=== PATIENT | female | born 1960 | race Caucasian/White ===

== ENCOUNTER → 2016-10-06 17:17 | Emergency (ER) | payer OTHER ==
[~2016-10-06 17:17] MED LIST: Iodixanol* (CONTRAST) 320 MG/ML 100 ML SDV IV ONE; NS 0.9% 1000 ML* 1,000 ML IV ONE
[2016-10-06 18:08] LABS: Hematocrit 37 % (35-47); Hemoglobin 12.2 g/dl (12.0-16.0); Mean Corpuscular HGB Conc 33 g/dl (31-36); Mean Corpuscular Hemoglobin 28 pg (27-31); Mean Corpuscular Volume 84 fL (80-97); Mean Platelet Volume 10 um3 (7.4-10.4); Red Blood Count 4.42 10^6/ul (4.0-5.4); Red Cell Distribution Width 13 % (10.5-15); White Blood Count 7.8 10^3/ul (3.5-10.8)
[2016-10-06 18:21] LABS: Chloride 104 mmol/L (101-111); Potassium 3.5 mmol/L (3.5-5.0); Sodium 132 mmol/L (133-145)
[2016-10-06 18:40] LABS: C Reactive Protein < 1.00 mg/L (< 5.00)
[2016-10-06 19:07] LABS: Albumin 4.3 g/dL (3.2-5.2)
[2016-10-06 19:08] LABS: ALT 44 U/L (7-52); AST 43 U/L (13-39); Alkaline Phosphatase 83 U/L (34-104); Anion Gap 5 mmol/L (2-11); BUN/Creatinine Ratio 19.6 (8-20); Blood Urea Nitrogen 21 mg/dL (6-24); CO2 Carbon Dioxide 23 mmol/L (22-32); Creatine Kinase 82 U/L (10-223); EGFR African American 68.7 (>60); EGFR Non-African American 53.4 (>60); Globulin 2.8 g/dL (2-4); Glucose 209 mg/dL (70-100); Lipase 56 U/L (11.0-82.0); Total Protein 7.1 g/dL (6.4-8.9)
[2016-10-06 19:39] LABS: TSH (Thyroid Stimulating Horm) 3.58 mcIU/mL (0.34-5.60)
[2016-10-06 20:15] VITALS: BP 133/82
--- NOTE | 2016-10-06 20:44 | RAD ---
HISTORY: Chest pain, abdominal pain COMPARISONS: Mammogram dated April 29, 2013 and August 01, 2016 TECHNIQUE: Multiple contiguous axial CT scans were obtained of the chest, abdomen, and pelvis after the administration of intravenous contrast. Coronal and sagittal multiplanar reformations are submitted for review.. 3-D volumetric reconstructions of the aorta are also submitted for review FINDINGS: CHEST NECK AND THYROID: The patient appears to be status post left thyroidectomy. CHEST WALL: There is no lower cervical, axillary, or supraclavicular lymphadenopathy by size criteria. There is a right breast nodule measuring 2 cm in size. This appears to correspond to a mammographic finding stable from multiple prior examinations consistent with benign nodule. HEART AND PERICARDIUM: The heart is unremarkable. AORTA AND PULMONARY VASCULATURE: The aorta and pulmonary vasculature are normal. There is no pulmonary arterial filling defects to suggest pulmonary embolism. There is no intimal flap or aneurysmal dilatation of the aorta. MEDIASTINUM: There is no mediastinal lymphadenopathy by size criteria. HILARIA: There is no hilar lymphadenopathy by size criteria. AIRWAY AND ESOPHAGUS: The airway is unremarkable, without endobronchial filling defect. The esophagus is grossly normal. LUNG PARENCHYMA: The lungs are clear. PLEURA: No pleural abnormalities are noted. BONES AND SOFT TISSUES: Mild degenerative changes are noted ABDOMEN/PELVIS: LIVER: The liver is diffusely low in attenuation compared to the spleen. There are no focal hepatic parenchymal masses. The liver is enlarged measuring 21 cm in long axis. BILE DUCTS: There is no intrahepatic or extrahepatic biliary dilatation. GALLBLADDER: The gallbladder is normal, without pericholecystic inflammatory change. PANCREAS: The pancreas is normal, without mass or ductal dilatation. SPLEEN: Normal in size and appearance. UPPER GI TRACT: Evaluation of the gastrointestinal tract is limited by incomplete gastric distention. The upper GI tract is unremarkable. SMALL BOWEL \T\ MESENTERY: The small bowel is normal in contour, course, and caliber. There is no obstruction or dilatation. COLON: There are multiple diverticula of the distal colon. There is no pericolonic inflammatory change. There is a tubular, vermiform, hollow viscus that is blind ending, and originates from the cecum, consistent with a normal appendix. There is no periappendiceal inflammatory change. This is best seen on axial image 190. ADRENALS: Normal bilaterally. KIDNEYS: The kidneys are normal in shape, size, contour, and axis. There is no hydronephrosis or nephrolithiasis. BLADDER: The bladder is smooth in contour. PELVIC ORGANS: The uterus is lobulated consistent with uterine fibroids. AORTA: The aorta is normal. IVC: Unremarkable LYMPH NODES: There is no lymphadenopathy by size criteria. ABDOMINAL WALL: There is no evidence for abdominal wall hernia. BONES: There are mild diffuse degenerative changes. OTHER: None IMPRESSION: 1. NO FINDINGS TO SUGGEST AORTIC DISSECTION OR ANEURYSM. 2. NO PULMONARY ARTERIAL FILLING DEFECT TO SUGGEST PULMONARY EMBOLISM. 3. HEPATOMEGALY WITH FATTY INFILTRATION OF THE LIVER. 4. FIBROID UTERUS. 5. DIVERTICULOSIS.
--- NOTE | 2016-10-06 20:57 | ED ---
Lois Oglesby Rebecca, scribed for Kendell Dewitt MD on 10/06/16 at 1742 . HPI Chest Pain - HPI Summary HPI Summary: Pt is a 56 y/o F who presents to ED c/o CP. Pain has been intermittent for multiple months, increasing in frequency. Pain is on the left anterior region "underneath the left breast" with radiation to the left shoulder blade region and is currently mild, ranked 3/10 and characterized as pressure. Pt reports the pain is predominantly in the back. Sx aggravated by deep breaths and leaning to the left, alleviated by nothing. Additionally c/o SOB that has been present for a while. Denies wheezing, blood in stool and acute edema. No bowel or bladder changes and has been able to eat and drink well. Recent Dx arthritis in the back, diagnosed by MRI. - History of Current Complaint Chief Complaint: EDChestPainROMI Time Seen by Provider: 10/06/16 17:33 Hx Obtained From: Patient Onset/Duration: Started Weeks Ago - Months, Still Present Timing: Intermittent Current Severity: Mild Pain Intensity: 3 Pain Scale Used: 0-10 Numeric Chest Pain Location: Left Anterior, Left Lateral Chest Pain Radiates: Yes Chest Pain Radiates To:: Back Character: Pressure/Squeezing Aggravating Factor(s): Movement - Bending to the left, Deep Breaths Alleviating Factor(s): Nothing Associated Signs and Symptoms: Positive: Shortness of Breath - present for a while. Negative: Edema - Allergy/Home Medications Allergies/Adverse Reactions: Allergies Allergy/AdvReac Type Severity Reaction Status Date / Time No Known Allergies Allergy Verified 09/28/16 14:22 PMH/Surg Hx/FS Hx/Imm Hx Endocrine/Hematology History: Denies: Hx Diabetes Comment Only: Hx Thyroid Disease - GOITER REMOVED Cardiovascular History: Reports: Hx Hypertension - ON MEDICATION FOR, Other Cardiovascular Problems/Disorders - HISTORY BLOOD CLOTS BY BOTH ANKLES- ABOUT 3 YEARS AGO Denies: Hx Pacemaker/ICD Respiratory History: Denies: Hx Asthma GI History: Reports: Hx Gastroesophageal Reflux Disease - ON MEDICATION FOR, Hx Hiatal Hernia - SMALL PER PATIENT- DIAGNOSED YEARS AGO, Hx Ulcer - HISTORY OF - NO PROBLEMS SINCE ON NEXIUM, Other GI Disorders - GOUT- ON MEDICATION FOR History: Reports: Other Problems/Disorders - "LEAK A SMALL AMOUNT OF PROTEIN FROM KIDNEY'S" Denies: Hx Renal Disease - LACKING PROTEIN Musculoskeletal History: Reports: Hx Arthritis - KNEES Sensory History: Reports: Hx Cataracts - BILATERAL, Hx Contacts or Glasses - READING GLASSES Denies: Hx Hearing Aid Opthamlomology History: Reports: Hx Cataracts - BILATERAL, Hx Contacts or Glasses - READING GLASSES Psychiatric History: Denies: Hx Panic Disorder - Cancer History Hx Chemotherapy: No Hx Radiation Therapy: No - Surgical History Surgery Procedure, Year, and Place: CATARACTS-BILATERAL- 6 YEARS AGO-[facility]. BILATERAL KNEE ARTHROSCOPIES-[facility], [place]. RIGHT SHOULDER-PA. GOITER REMOVED- [facility]. Rt FOOT - FOR HEEL SPUR, PLANTAR FASCITIES Hx Anesthesia Reactions: No Infectious Disease History: Denies: Traveled Outside the [place] in Last 30 Days - Family History Known Family History: Positive: Other - Brain clot - Social History Alcohol Use: Occasionally Substance Use Type: Reports: Marijuana Substance Use Comment - Amount & Last Used: MARIJUANA-MONDAY LAST USED Smoking Status (MU): Current Every Day Smoker Amount Used/How Often: 1/2 PPD X 25 YEARS Have You Smoked in the Last Year: Yes Review of Systems Positive: Chest Pain - left anterior with radiation to the L shoulder blade Positive: Shortness Of Breath - present for a while, Other - NEGATIVE: wheezing Positive: Other - NEGATIVE: blood in stool Negative: Edema All Other Systems Reviewed And Are Negative: Yes Physical Exam - Summary Physical Exam Summary: General: well-appearing, no pain distress Skin: warm, color reflects adequate perfusion, dry Head: normal Eyes: EOMI, ELAN ENT: normal Neck: supple, nontender Respiratory: CTA, breath sounds present Cardiovascular: RRR, no tenderness to palpation Abdomen: soft, nontender Bowel: present Musculoskeletal: normal, strength/ROM intact Neurological: normal, sensory/motor intact, A&O x3 Psychological: affect/mood appropriate Triage Information Reviewed: Yes Vital Signs On Initial Exam: Initial Vitals Temp Pulse Resp BP Pulse Ox 98.1 F 79 20 139/84 99 10/06/16 17:25 10/06/16 17:25 10/06/16 17:25 10/06/16 17:25 10/06/16 17:25 Vital Signs Reviewed: Yes Diagnostics - Vital Signs Vital Signs Temp Pulse Resp BP Pulse Ox 10/06/16 17:25 98.1 F 79 20 139/84 99 - Laboratory Lab Results: Lab Results 10/06/16 10/06/16 10/06/16 Range/Units 17:47 17:47 17:47 WBC 7.8 (3.5-10.8) 10^3/ul RBC 4.42 (4.0-5.4) 10^6/ul Hgb 12.2 (12.0-16.0) g/dl Hct 37 (35-47) % MCV 84 (80-97) fL MCH 28 (27-31) pg MCHC 33 (31-36) g/dl RDW 13 (10.5-15) % Plt Count 198 (150-450) 10^3/ul MPV 10 (7.4-10.4) um3 Neut % (Auto) 53.0 (38-83) % Lymph % (Auto) 37.2 (25-47) % Union % (Auto) 6.6 (1-9) % Eos % (Auto) 2.4 (0-6) % Baso % (Auto) 0.8 (0-2) % Absolute Neuts (auto) 4.1 (1.5-7.7) 10^3/ul Absolute Lymphs (auto) 2.9 (1.0-4.8) 10^3/ul Absolute Monos (auto) 0.5 (0-0.8) 10^3/ul Absolute Eos (auto) 0.2 (0-0.6) 10^3/ul Absolute Basos (auto) 0.1 (0-0.2) 10^3/ul Absolute Nucleated RBC 0 10^3/ul Nucleated RBC % 0 INR (Anticoag Therapy) 0.83 L (0.89-1.11) APTT 24.9 L (26.0-36.3) seconds D-Dimer, Quantitative < 200 (Less Than 230) ng/mL Sodium 132 L (133-145) mmol/L Potassium 3.5 (3.5-5.0) mmol/L Chloride 104 (101-111) mmol/L Carbon Dioxide 23 (22-32) mmol/L Anion Gap 5 (2-11) mmol/L BUN 21 (6-24) mg/dL Creatinine 1.07 H (0.51-0.95) mg/dL Est GFR ( Amer) 68.7 (>60) Est GFR (Non-Af Amer) 53.4 (>60) BUN/Creatinine Ratio 19.6 (8-20) Glucose 209 H (70-100) mg/dL Lactic Acid (0.5-2.0) mmol/L Calcium 9.0 (8.6-10.3) mg/dL Total Bilirubin 0.30 (0.2-1.0) mg/dL AST 43 H (13-39) U/L ALT 44 (7-52) U/L Alkaline Phosphatase 83 (34-104) U/L Total Creatine Kinase 82 (10-223) U/L CK-MB (CK-2) 2.3 (0.6-6.3) ng/mL Troponin I 0.00 (<0.04) ng/mL C-Reactive Protein < 1.00 (< 5.00) mg/L B-Natriuretic Peptide ( - 100) pg/mL Total Protein 7.1 (6.4-8.9) g/dL Albumin 4.3 (3.2-5.2) g/dL Globulin 2.8 (2-4) g/dL Albumin/Globulin Ratio 1.5 (1-3) Lipase 56 (11.0-82.0) U/L TSH 3.58 (0.34-5.60) mcIU/mL 10/06/16 10/06/16 Range/Units 17:47 17:47 WBC (3.5-10.8) 10^3/ul RBC (4.0-5.4) 10^6/ul Hgb (12.0-16.0) g/dl Hct (35-47) % MCV (80-97) fL MCH (27-31) pg MCHC (31-36) g/dl RDW (10.5-15) % Plt Count (150-450) 10^3/ul MPV (7.4-10.4) um3 Neut % (Auto) (38-83) % Lymph % (Auto) (25-47) % Union % (Auto) (1-9) % Eos % (Auto) (0-6) % Baso % (Auto) (0-2) % Absolute Neuts (auto) (1.5-7.7) 10^3/ul Absolute Lymphs (auto) (1.0-4.8) 10^3/ul Absolute Monos (auto) (0-0.8) 10^3/ul Absolute Eos (auto) (0-0.6) 10^3/ul Absolute Basos (auto) (0-0.2) 10^3/ul Absolute Nucleated RBC 10^3/ul Nucleated RBC % INR (Anticoag Therapy) (0.89-1.11) APTT (26.0-36.3) seconds D-Dimer, Quantitative (Less Than 230) ng/mL Sodium (133-145) mmol/L Potassium (3.5-5.0) mmol/L Chloride (101-111) mmol/L Carbon Dioxide (22-32) mmol/L Anion Gap (2-11) mmol/L BUN (6-24) mg/dL Creatinine (0.51-0.95) mg/dL Est GFR ( Amer) (>60) Est GFR (Non-Af Amer) (>60) BUN/Creatinine Ratio (8-20) Glucose (70-100) mg/dL Lactic Acid 1.8 (0.5-2.0) mmol/L Calcium (8.6-10.3) mg/dL Total Bilirubin (0.2-1.0) mg/dL AST (13-39) U/L ALT (7-52) U/L Alkaline Phosphatase (34-104) U/L Total Creatine Kinase (10-223) U/L CK-MB (CK-2) (0.6-6.3) ng/mL Troponin I (<0.04) ng/mL C-Reactive Protein (< 5.00) mg/L B-Natriuretic Peptide 38 ( - 100) pg/mL Total Protein (6.4-8.9) g/dL Albumin (3.2-5.2) g/dL Globulin (2-4) g/dL Albumin/Globulin Ratio (1-3) Lipase (11.0-82.0) U/L TSH (0.34-5.60) mcIU/mL Result Diagrams: 10/06/16 17:47 10/06/16 17:47 Lab Statement: Any lab studies that have been ordered have been reviewed, and results considered in the medical decision making process. - CT CTA Chest/Abd/Pel CT Interpretation: Positive (See Comments) - 1. NO FINDINGS TO SUGGEST AORTIC DISSECTION OR ANEURYSM. 2. NO PULMONARY ARTERIAL FILLING DEFECT TO SUGGEST PULMONARY EMBOLISM. 3. HEPATOMEGALY WITH FATTY INFILTRATION OF THE LIVER. 4. FIBROID UTERUS. 5. DIVERTICULOSIS. ED physician reviewed this radiology report and agrees. CT Interpretation Completed By: Radiologist - EKG 1847 Cardiac Rate: NL - bpm EKG Rhythm: Sinus Rhythm ST Segment: Normal Ectopy: None Re-Evaluation - Re-Evaluation First Eval Re-Evaluation Time: 19:47 Change: Improved Comment: Pt is doing well, discussed lab results with the pt. Second Eval Re-Evaluation Time: 20:52 Comment: Discussed radiology report and D/C plan with the pt. Chest Pain Course/Dx - Course Assessment/Plan: Pt is a 56 y/o F who presents to ED c/o CP. Pain has been intermittent for multiple months, increasing in frequency. Pain is on the left anterior region "underneath the left breast" with radiation to the left shoulder blade region and is currently mild, ranked 3/10 and characterized as pressure. Pt reports the pain is predominantly in the back. Sx aggravated by deep breaths and leaning to the left, alleviated by nothing. Additionally c/o SOB that has been present for a while. Denies wheezing, blood in stool and acute edema. No bowel or bladder changes and has been able to eat and drink well. Recent Dx arthritis in the back, diagnosed by MRI. CTA Chest/Abd/Pel reveals "1. NO FINDINGS TO SUGGEST AORTIC DISSECTION OR ANEURYSM. 2. NO PULMONARY ARTERIAL FILLING DEFECT TO SUGGEST PULMONARY EMBOLISM. 3. HEPATOMEGALY WITH FATTY INFILTRATION OF THE LIVER. 4. FIBROID UTERUS. 5. DIVERTICULOSIS. " EKG reveals sinus rhythm with no ST elevations. D-Dimer <200, Troponin of 0.00. In the ED course, pt was administered fluids. Elevated BP noted and advised to f/u with PCP. DISCUSSED RESULTS WITH PATIENT. SHE WILL F/ U WITH HER PMD. - Diagnoses Provider Diagnoses: Chest pain, Abdominal pain Discharge - Discharge Plan Condition: Stable Disposition: HOME Patient Education Materials: Chest Pain (ED), Abdominal Pain (ED), Hyperglycemia, Non-Diabetic (ED) Referrals: Long Machado MD [Primary Care Provider] - Additional Instructions: FOLLOW UP WITH YOUR DOCTOR. RETURN TO THE EMERGENCY DEPARTMENT FOR ANY WORSENING OF YOUR CONDITION OR QUESTIONS OR CONCERNS. The documentation as recorded by the scribe, DiFabio,Yelena accurately reflects the service I personally performed and the decisions made by me, Kendell Dewitt MD.
== END | disposition home or self-care (01) ==
LOC: ED 17:17
DX: R07.89 Other chest pain (principal); R10.9 Unspecified abdominal pain; R06.02 Shortness of breath; I10 Essential (primary) hypertension; K21.9 Gastro-esophageal reflux disease without esophagitis; Z98.42 Cataract extraction status, left eye; Z98.41 Cataract extraction status, right eye; D25.9 Leiomyoma of uterus, unspecified; K57.30 Diverticulosis of large intestine without perforation or abscess without bleeding
CPT/HCPCS: 36415; 71275; 74174; 80053; 82550; 82553; 83605; 83690; 83880; 84443; 84484; 85025; 85379; 85610; 85730; 86140; 93005; 96360; 96361; 99284; Q9967

== ENCOUNTER 2017-01-24 23:46 | Observation (INO) | payer OTHER ==
[2017-01-25] MEDS ORDERED: Morphine INJ* 4 MG/ML 1 ML CARPUJECT IV ONE ×2 (00:34→04:21)
[2017-01-25] MEDS ORDERED: Ketorolac INJ* 30 MG/ML 1 ML VIAL IV PUSH ONE (00:34)
[2017-01-25] MEDS ORDERED: Ondansetron INJ* 2 MG/ML VIAL IV ONE (00:34)
[2017-01-25 00:51] LABS: Hematocrit 34 % (35-47); Hemoglobin 11.3 g/dl (12.0-16.0); Mean Corpuscular HGB Conc 33 g/dl (31-36); Mean Corpuscular Hemoglobin 28 pg (27-31); Mean Corpuscular Volume 85 fL (80-97); Mean Platelet Volume 10 um3 (7.4-10.4); Red Blood Count 4.03 10^6/ul (4.0-5.4); Red Cell Distribution Width 14 % (10.5-15); White Blood Count 6.9 10^3/ul (3.5-10.8)
[2017-01-25 01:07] LABS: Albumin 3.8 g/dL (3.2-5.2); BUN/Creatinine Ratio 12.5 (8-20); Calcium 8.8 mg/dL (8.6-10.3); EGFR African American 60.2 (>60); EGFR Non-African American 46.8 (>60); Globulin 3.2 g/dL (2-4); Total Bilirubin 0.3 mg/dL (0.2-1.0)
[2017-01-25 01:08] LABS: Troponin I 0.01 ng/mL (<0.04)
[2017-01-25 01:42] LABS: Potassium 3.8 mmol/L (3.5-5.0)
[2017-01-25] MEDS ORDERED: Iodixanol* (CONTRAST) 320 MG/ML 100 ML SDV IV ONE (02:28)
[2017-01-25] MEDS ORDERED: Enoxaparin(*) 150 MG/ML 1 ML SYRINGE SUBCUT STA (04:22)
--- NOTE | 2017-01-25 04:29 | ED ---
Lois Oglesby Rebecca, scribed for Francois Garner MD on 01/25/17 at 0007 . Back Pain - HPI Summary HPI Summary: Pt is a 56 y/o F who presents to ED c/o L flank pain. Sx began tonight at approximately 2200. Pain was ranked 9/10 on triage and is currently moderate, ranked 7/10 and radiates under the left breast and through the back. Sx aggravated by movement and breathing, alleviated by nothing. Additionally c/o cough and nausea. Denies fever, diaphoresis and vomiting. Last stress test was a few months ago which she passed. PSHx L knee replacement 12/14/2016. SHx former smoker. - History of Current Complaint Chief Complaint: EDFlankPain Stated Complaint: BACK PAIN Time Seen by Provider: 01/25/17 00:00 Hx Obtained From: Patient Onset/Duration: Lasting Hours, Still Present Back Pain Location: Is Discrete @ - L flank, Radiates To - Throughout the back and under the L breast Severity Initially: Severe Severity Currently: Moderate Pain Intensity: 7 Pain Scale Used: 0-10 Numeric Aggravating Symptom(s): Movement, Other - Breathing Alleviating Symptom(s): Nothing Associated Signs And Symptoms: Positive: Other - Nausea, cough - Allergies/Home Medications Allergies/Adverse Reactions: Allergies Allergy/AdvReac Type Severity Reaction Status Date / Time No Known Allergies Allergy Verified 01/24/17 23:58 PMH/Surg Hx/FS Hx/Imm Hx Endocrine/Hematology History: Denies: Hx Diabetes Comment Only: Hx Thyroid Disease - GOITER REMOVED Cardiovascular History: Reports: Hx Angina - pressure radiates to arm, Hx Deep Vein Thrombosis, Hx Hypertension, Other Cardiovascular Problems/Disorders - HISTORY BLOOD CLOTS BY BOTH ANKLES- ABOUT 3 YEARS AGO Denies: Hx Coronary Artery Disease, Hx Hypercholesterolemia, Hx Myocardial Infarction, Hx Pacemaker/ICD, Hx Valvular Heart Disease Respiratory History: Reports: Hx Sleep Apnea Denies: Hx Asthma, Hx Chronic Obstructive Pulmonary Disease (COPD) GI History: Reports: Hx Gastroesophageal Reflux Disease - ON MEDICATION FOR, Hx Hiatal Hernia - SMALL PER PATIENT- DIAGNOSED YEARS AGO, Hx Ulcer - HISTORY OF - NO PROBLEMS SINCE ON NEXIUM, Other GI Disorders - GOUT- ON MEDICATION FOR History: Reports: Other Problems/Disorders - "LEAK A SMALL AMOUNT OF PROTEIN FROM KIDNEY'S" Denies: Hx Renal Disease - LACKING PROTEIN Musculoskeletal History: Reports: Hx Arthritis - KNEES Sensory History: Reports: Hx Cataracts - BILATERAL, Hx Contacts or Glasses - READING GLASSES Denies: Hx Hearing Aid Opthamlomology History: Reports: Hx Cataracts - BILATERAL, Hx Contacts or Glasses - READING GLASSES Psychiatric History: Reports: Hx Anxiety Denies: Hx Panic Disorder - Cancer History Hx Chemotherapy: No Hx Radiation Therapy: No - Surgical History Surgery Procedure, Year, and Place: CATARACTS-BILATERAL- 6 YEARS AGO-[facility]. BILATERAL KNEE ARTHROSCOPIES-[facility], [place]. RIGHT SHOULDER-PA. GOITER REMOVED- [facility]. Rt FOOT - FOR HEEL SPUR, PLANTAR FASCITIES Hx Anesthesia Reactions: No Infectious Disease History: No Infectious Disease History: Denies: Traveled Outside the [place] in Last 30 Days - Family History Known Family History: Positive: Other - Brain clot - Social History Alcohol Use: Occasionally Alcohol Amount: 12 BEERS ON WEEKEND Substance Use Type: Reports: Marijuana Substance Use Comment - Amount & Last Used: MARIJUANA-MONDAY LAST USED Smoking Status (MU): Current Some Day Smoker Amount Used/How Often: 1/2 PPD X 25 YEARS Have You Smoked in the Last Year: Yes Review of Systems Negative: Fever, Skin Diaphoresis Positive: Cough Positive: Nausea. Negative: Vomiting Positive: flank pain - Left All Other Systems Reviewed And Are Negative: Yes Physical Exam - Summary Physical Exam Summary: VITAL SIGNS: Reviewed. GENERAL: ~Patient is a well-developed and nourished female who is lying in the stretcher. Patient is not in any acute respiratory distress. HEAD AND FACE: No signs of trauma. No ecchymosis, hematomas or skull depressions. No sinus tenderness. EYES: PERRLA, EOMI x 2, No injected conjunctiva, no nystagmus. EARS: Hearing grossly intact. Ear canals and tympanic membranes are within normal limits. MOUTH: Oropharynx within normal limits. NECK: Supple, trachea is midline, no adenopathy, no JVD, no carotid bruit, no c- spine tenderness, neck with full ROM. CHEST: Symmetric, no tenderness at palpation LUNGS: Clear to auscultation bilaterally. No wheezing or crackles. Decreased breath sounds due to the pain. CVS: Regular rate and rhythm, S1 and S2 present, no murmurs or gallops appreciated. ABDOMEN: Soft, non-tender. No signs of distention. No rebound no guarding, and no masses palpated. Bowel sounds are normal. EXTREMITIES: FROM in all major joints, no edema, no cyanosis or clubbing. NEURO: Alert and oriented x 3. No acute neurological deficits. Speech is normal and follows commands. SKIN: Dry and warm Triage Information Reviewed: Yes Vital Signs On Initial Exam: Initial Vitals Temp Pulse Resp BP Pulse Ox 98.5 F 99 20 145/93 99 01/24/17 23:54 01/24/17 23:54 01/24/17 23:54 01/24/17 23:54 01/24/17 23:54 Vital Signs Reviewed: Yes Diagnostics - Vital Signs Vital Signs Temp Pulse Resp BP Pulse Ox 01/24/17 23:54 98.5 F 99 20 145/93 99 - Laboratory Result Diagrams: 01/25/17 00:25 01/25/17 00:25 Lab Statement: Any lab studies that have been ordered have been reviewed, and results considered in the medical decision making process. - Radiology CXR Xray Interpretation: No Acute Changes Radiology Interpretation Completed By: ED Physician - CT CTA Chest CT Interpretation: Positive (See Comments) - Pulmonary emboli bilateral lower lobes and left upper lobe. Peripheral densities left lower lobe, suspicious for infarcts. No aortic dissection or aneurysm. No pneumonia or pleural effusions. Mediastinal lymphadenopathy, indeterminate. Left hemithyroidectomy. Dr. Garner reviewed this radiology report. CT Interpretation Completed By: Radiologist - EKG 2355 Cardiac Rate: NL EKG Rhythm: Sinus Rhythm EKG Interpretation: 88 bpm. Normal interval. Normal axis. No ischemic changes. Re-Evaluation - Re-Evaluation First Eval Re-Evaluation Time: 04:20 Comment: Discussed results with the pt. Back Pain Course/Dx - Course Assessment/Plan: Pt is a 56 y/o F who presents to ED c/o L flank pain since 2199 , currently ranked 7/10 and radiates under the left breast and through the back. Sx aggravated by movement and breathing. Additionally c/o cough and nausea. Denies fever, diaphoresis and vomiting. Last stress test was a few months ago which she passed. PSHx L knee replacement 12/14/2016. SHx former smoker. CXR and EKG reveal no acute findings. CTA Chest reveals bilateral lower lobe and left upper lobe pulmonary emboli. Discussed care of pt with Dr. Morales who accepts the pt for admission. Pt understands and agrees. Elevated BP noted. - Diagnoses Provider Diagnoses: Bilateral pulmonary embolism, Pulmonary infarction - Provider Notifications Discussed Care Of Patient With: Karen Morales Time Discussed With Above Provider: 04:26 Instructed by Provider To: Other - Accepts pt for admission Discharge - Discharge Plan Condition: Stable Disposition: ADMITTED TO [facility] Referrals: Long Machado MD [Primary Care Provider] - The documentation as recorded by the Lois arciniega Rebecca accurately reflects the service I personally performed and the decisions made by , Francois Garner MD.
[2017-01-25] MEDS ORDERED: Acetaminophen TAB* 325 MG PO PRN (04:51)
[2017-01-25] MEDS ORDERED: NS 0.9% 1000 ML* 1,000 ML IV SCH (05:00)
[2017-01-25] MEDS ORDERED: Morphine INJ* 2 MG/ML 1 ML SYRINGE (TWO MG - NEW SYRINGE VERSION) IV PRN (05:15)
--- NOTE | 2017-01-25 07:13 | HP ---
CC: Dr. Machado; Dr. Klein * HISTORY AND PHYSICAL: DATE OF ADMISSION: 01/25/17 PRIMARY CARE PROVIDER: Dr. Machado. ORTHOPEDIC SURGEON: Dr. Klein. CHIEF COMPLAINT: Chest pain. HISTORY OF PRESENT ILLNESS: Ms. Pires is a 56-year-old female who underwent elective left total knee arthroplasty on 12/14/[address] Klein. She states that she did well following the surgery. She was on Eliquis for approximately 1 month and stopped the Eliquis she believes last week. The patient states that she has been doing physical therapy and has been getting along well. She has not gone back to work yet. The patient states that it is approximately 11 p.m. on the evening prior to admission, she had a sudden onset of severe left-sided chest pain. The patient describes the pain as being under her left breast and wrapping around to her back. Additionally, she felt very short of breath. She had had no chest pain prior though her partner does state that perhaps she has had some mild discomfort in her back over the last couple of days. The patient also admits to bringing up clear sputum over the last couple of days. The patient does admit to having what she thinks was a superficial vein thrombosis prior to a knee arthroscopic surgery in the past and was on Coumadin for this. PAST MEDICAL HISTORY: 1. Hypertension. 2. Gout. 3. GERD. 4. Obstructive sleep apnea utilizing CPAP. 5. Fatty liver disease. PAST SURGICAL HISTORY: 1. Goiter removal. 2. Rotator cuff repair. 3. Bilateral cataract extraction. 4. Plantar fasciitis release. 5. Bilateral arthroscopic knee surgery. 6. Left knee total arthroplasty. MEDICATIONS: 1. Nisoldipine 17 mg p.o. daily. 2. Losartan 100 mg p.o. daily. 3. Triamterene/hydrochlorothiazide 37.5/25 two tabs p.o. daily. 4. Nexium 40 mg p.o. daily. 5. Allopurinol 200 mg p.o. daily. ALLERGIES: No known drug allergies. FAMILY HISTORY: Mom is living. She is 74. She has a history of breast cancer , diabetes, and hyperlipidemia. Dad at the age of 57 of a brain aneurysm. SOCIAL HISTORY: The patient does not smoke cigarettes, but she does state she drinks alcohol on occasion. 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 She is . She has no children. Cayden Valdivia, the patient's partner, is her healthcare proxy. The patient was a prior tobacco smoker. Smoking one and a half pack per day for approximately 35 years. She also smokes marijuana each weekend. REVIEW OF SYSTEMS: A complete 11-system review of systems is obtained. Pertinent positives and negatives are as per HPI and otherwise negative except the patient does complain of mild dysuria. PHYSICAL EXAMINATION GENERAL: The patient is a well-developed, obese middle-aged female, sitting up in the bed in no acute distress. VITAL SIGNS: Blood pressure 121/90, pulse 75, respirations 23, temp 98.8, O2 sat 98% on 2 L. HEENT: Pupils are equal and round. There is evidence of prior cataract extraction. Extraocular muscles are intact. Oropharynx is clear. Oral mucosa is moist. There is no submandibular, cervical, or supraclavicular adenopathy. Thyroid is not enlarged. No thyroid nodules are noted. PULMONARY: Right lung is clear to auscultation. Left reveals basilar crackles. CARDIAC: Normal S1, S2. Regular rate and rhythm. I do not appreciate any murmurs. ABDOMEN: Bowel sounds present. Abdomen is soft, obese, nontender, and nondistended. EXTREMITIES: The left lower extremity appears to be larger in diameter than the right, but there is no significant pitting edema. MUSCULOSKELETAL: There is no cyanosis or clubbing of the digits. There is full active range of motion of all 4 extremities. SKIN: Warm and dry. There are no rashes. NEUROLOGIC: Cranial nerves II through XII are grossly intact. Sensation is intact to light touch throughout. Strength is 5/5 and symmetric both upper and lower extremities bilaterally. PSYCH: The patient is alert. She is oriented x3. Affect appears appropriate. DIAGNOSTIC STUDIES/LAB DATA: WBC 6.9, hemoglobin 11.3, hematocrit 34, platelets 202. INR 0.86. D-dimer greater than 1050. Sodium 138, potassium 3.8 , chloride 106, CO2 22, BUN 15, creatinine 1.20, glucose 171. Calcium 8.8, bilirubin 0.3, AST 41, ALT 47, alk phos 72. CPK 60. Troponin 0.01. Albumin 3.8. Chest x-ray to my interpretation, I question a small left basilar infiltrate. EKG reveals normal sinus rhythm without any acute ST-T wave abnormalities. CTA chest reveals bilateral pulmonary emboli right lower lobe, left lower lobe, and left upper lobe. There are possibly infarcts in the left lower lobe. ASSESSMENT AND PLAN: Ms. Pires is a 56-year-old female who underwent elective left total knee arthroplasty at the beginning of December, who now presents to the emergency room with complaints of sudden onset of severe chest pain and is found to have bilateral pulmonary emboli. 1. Bilateral pulmonary emboli: The patient will be admitted under observation status to be monitored on telemetry. At this point, she is hemodynamically stable. The patient has been off Eliquis for at least the last 1 week. I suspect the clot formed after discontinuing the Eliquis; however, it may be beneficial to speak with Hematology about recommendations for anticoagulation moving forward. The patient did not have any issues while she was on Eliquis. Transthoracic echocardiogram will be obtained. For now, she will be maintained on Lovenox 120 mg subcutaneous twice daily. The patient has been instructed to report coughing up any renee blood, any worsened or new chest pain or severe shortness of breath. I will also obtain left lower extremity Doppler to evaluate the extent of remaining clots. 2. Hypertension: The patient's blood pressure is under good control. I am going to hold her triamterene and hydrochlorothiazide for now, and continue the nisoldipine and losartan. If she becomes markedly hypertensive, the transferring hydrochlorothiazide can be added back cautiously. 3. Gastroesophageal reflux disease: Continue Nexium. 4. Gout: Continue allopurinol. 5. DVT prophylaxis: According to the Adult Thrombosis Prophylaxis Risk Factor Assessment Guide, the patient has a total risk factor score of 5 is identified. The patient will be on full dose Lovenox as DVT, PE treatment. 6. Code status is full. TIME SPENT: A 65 minutes was spent admitting the patient. [id number]/[facility] #: [id number] JENNIFER
--- NOTE | 2017-01-25 07:33 | RAD ---
INDICATION: Short of breath COMPARISON: Chest x-ray December 02, 2016 TECHNIQUE: An AP portable view obtained at 0044 hours is submitted. FINDINGS: Bones/Soft Tissues: There are no acute bony findings. Cardiomediastinal: The cardiomediastinal silhouette is normal. Lungs: There is a small left basilar infiltrate. The remaining lung pendleton are clear. Pleura: There are no pleural effusions. Other: None IMPRESSION: LEFT BASILAR INFILTRATE.
--- NOTE | 2017-01-25 07:39 | RAD ---
INDICATION: Left basilar infiltrate. Evaluate for pulmonary embolus. COMPARISON: Chest x-ray same date; CTA chest October 06, 2016 TECHNIQUE: Axial source images were obtained from the thoracic inlet to the hemidiaphragms following administration of [address] angiographic technique was utilized. Coronal and sagittal reconstructed images were acquired. CHEST FINDINGS: Neck/thyroid: There is left thyroidectomy. The right lobe is prominent. Chest wall: There are no acute abnormalities of the bony thorax or chest wall. There is a right breast nodule which represents a known finding from prior mammography There is no supraclavicular, infraclavicular, or axillary lymphadenopathy. Lungs : There is left basilar airspace disease which in the setting of acute pulmonary emboli could represent an infarct.. The pulmonary interstitium appears normal. There are no endobronchial lesions. Cardiomediastinal structures: There are fourth order and distal acute pulmonary emboli involving the lower lobes bilaterally. The heart is normal in size. There is no pericardial effusion. There is no evidence of aortic aneurysm or dissection. There is no mediastinal or hilar adenopathy on the basis of size criteria. There are mildly prominent mediastinal lymph nodes, unchanged. The esophagus appears normal. Pleura : There are no pleural-based masses or effusions. Other: None. IMPRESSION: BILATERAL LOWER LOBE ACUTE PULMONARY EMBOLI.
[2017-01-25] MEDS ORDERED: Allopurinol TAB* 100 MG PO SCH (09:00)
[2017-01-25] MEDS ORDERED: Losartan TAB* 25 MG PO SCH (09:00)
[2017-01-25] MEDS ORDERED: NISOLDIPINE 17 MG PO SCH (09:00)
[2017-01-25] MEDS ORDERED: Omeprazole CAP* 20 MG PO SCH (09:00)
--- NOTE | 2017-01-25 09:05 | RAD ---
INDICATION: Pain and swelling. Recent total knee replacement. COMPARISON: None TECHNIQUE: Duplex interrogation of the Lowerextremity was performed. FINDINGS: Deep veins: The common femoral, great saphenous, profunda femoris, proximal, mid, and distal deep femoral, popliteal, posterior tibial, and peroneal veins are interrogated. There is thrombus in the distal popliteal vein and in the peroneal veins. There is normal compressibility, augmentation, and phasic flow in the remaining venous structures.. Superficial veins: There are no findings of superficial thrombophlebitis. Popliteal fossa: 2.2 x 1.3 x 1.0 cm popliteal cyst. Soft tissues:There are no soft tissue abnormalities. IMPRESSION: Acute deep venous thrombosis. Popliteal cyst. Findings called to the floor following the examination.
[2017-01-25 10:13] VITALS: BP 112/60
[2017-01-25] MEDS ORDERED: Apixaban* 5 MG TAB PO SCH ×2 (10:17→10:39)
[2017-01-25] MEDS ORDERED: oxyCODONE TAB* 5 MG TAB PO PRN (10:41)
--- NOTE | 2017-01-25 10:50 | PN ---
"Progress Note - Progress Note Date of Service: 01/25/17 Note: Search Terms: jong pires, 1960 Search Date: 01/25/2017 10:40:27 AM The Drug Utilization Report below displays all of the controlled substance prescriptions, if any, that your patient has filled in the last twelve months. The information displayed on this report is compiled from pharmacy submissions to the Department, and accurately reflects the information as submitted by the pharmacies. This report was requested by: Zaire Hernandez | Reference #: [id number] Others' Prescriptions Patient Name: Jong Pires Date: 1960 Address: [address] [place] [address] Sex: Female Rx Written Rx Dispensed Drug Quantity Days Supply Prescriber Name 12/26/2016 12/27/2016 oxycodone hcl 5 mg tablet 60 15 Vaishnavi Eckert 12/26/2016 12/27/2016 diazepam 5 mg tablet 30 10 Vaishnavi Eckert 12/17/2016 12/17/2016 oxycodone hcl 5 mg tablet 120 10 Racquel Young 12/17/2016 12/17/2016 diazepam 5 mg tablet 30 10 Racquel Young 03/31/2016 03/31/2016 guaifenesin ac cough syrup 120ml 2 Renetta Alcala NP 03/17/2016 03/17/2016 guaifenesin ac cough syrup 120ml 4 Renetta Alcala NP"
[2017-01-25] MEDS ORDERED: Enoxaparin(*) 150 MG/ML 1 ML SYRINGE SUBCUT SCH (16:30)
--- NOTE | 2017-01-25 21:22 | DS ---
CC: Dr. Machado; Dr. Klein * DISCHARGE SUMMARY: DATE OF ADMISSION: 01/25/17 DATE OF DISCHARGE: 01/25/17 HISTORY OF PRESENT ILLNESS: This 56-year-old woman presented with chest pain. She had left total knee replacement on 12/14/16. She was placed on apixaban 2.5 mg b.i.d. for DVT prophylaxis. She finished it a week or possibly longer. Before the time of admission, she went to physical therapy. On the day of admission, she developed severe-left sided chest pain around 11 p.m. and was short of breath. The rest of the history is detailed and dictated in admission note. CTA showed bilateral pulmonary emboli. Ultrasound of the left leg showed some clots in the distal popliteal vein. She had no clinical symptoms from her leg thrombosis. The patient was given one injection of enoxaparin 120 mg in the emergency room. About 10:30 a.m., she was given apixaban 10 mg p.o. She will continue on apixaban 10 mg b.i.d. for 7 days, then changed to 5 mg b.i.d. She was given 40 oxycodone 5 mg tablets to take 1 or 2 every 4 hours p.r.n., maximum daily dosage. She was advised to take a laxative on a daily basis twice daily as needed to prevent constipation. FINAL DIAGNOSES: 1. Pulmonary emboli and left leg DVT. 2. Morbid obesity. 3. Osteoarthritis. 4. Gastroesophageal reflux disease. 5. Hypertension. DISCHARGE MEDICATIONS: 1. Apixaban 5 mg 2 b.i.d. for 7 days, then 1 b.i.d. 2. Oxycodone 5 mg 1 to 2 every 4 hours p.r.n. 3. Nisoldipine 17 mg every morning. 4. Losartan 100 mg daily. 5. Allopurinol 200 mg daily. 6. Esomeprazole 40 mg every morning. 7. Triamterene/hydrochlorothiazide 37.5/25 daily. [id number]/[facility] #: [id number] [facility]
== END 2017-01-25 12:35 | disposition home or self-care (01) ==
LOC: ED 23:46 → MEDTELE 01-25 04:51
PROVIDERS: ADMIT Hospitalist; ATTEND Internal Medicine
DX: I82.402 Acute embolism and thrombosis of unspecified deep veins of left lower extremity (principal); I26.99 Other pulmonary embolism without acute cor pulmonale; E66.9 Obesity, unspecified; M19.90 Unspecified osteoarthritis, unspecified site; K21.9 Gastro-esophageal reflux disease without esophagitis; I10 Essential (primary) hypertension; G47.33 Obstructive sleep apnea (adult) (pediatric); M10.9 Gout, unspecified; F12.90 Cannabis use, unspecified, uncomplicated; F17.200 Nicotine dependence, unspecified, uncomplicated
CPT/HCPCS: 36415; 71010; 71275; 80053; 82550; 84484; 85025; 85379; 85610; 85730; 93005; 96374; 96375; 99285; A9270-GY; G0378; J1650; J1885; J2270; J2405; Q9967

== ENCOUNTER 2018-01-20 17:47 | Emergency (ER) | payer OTHER ==
[2018-01-20] MEDS ORDERED: HYDROmorphone INJ* 1 MG/ML CARPUJECT SYRINGE IM ONE (20:02)
[2018-01-20] MEDS ORDERED: PROCHLORPERAZINE INJ 5 MG/ML 2 ML VIAL IM ONE (20:02)
[2018-01-20] MEDS ORDERED: Clindamycin CAP* 150 MG PO ONE (20:03)
--- NOTE | 2018-01-20 20:03 | ED ---
GI/ HPI - HPI Summary HPI Summary: This patient is a 57 year old F presenting to ED with a chief complaint of small rectal bleeding with her stool since 1 week ago. The CC is described as worsened today, and something is protruding from her rectum per the nurses note. The patient rates the pain 9/10 in severity. Symptoms aggravated by sitting. Symptoms alleviated by nothing. Patient reports nausea and slight pain in left LE. Patient denies fever. Prior treatment includes hemorrhoid cream. PMHx of colonscopy in November 2017. - History of Current Complaint Chief Complaint: EDRectalPain Time Seen by Provider: 01/20/18 19:34 Stated Complaint: hemorrhoids Hx Obtained From: Patient Onset/Duration: Started Weeks Ago - 1 week ago, Still Present Timing: Constant Severity: Severe - 9/10 Current Severity: Severe - 9/10 Pain Intensity: 9 Location of Pain: Other - rectal area Associated Signs and Symptoms: Positive: Nausea. Negative: Fever - Additional Pertinent History Primary Care Physician: FERMIN - Allergy/Home Medications Allergies/Adverse Reactions: Allergies Allergy/AdvReac Type Severity Reaction Status Date / Time No Known Allergies Allergy Verified 01/20/18 17:52 PMH/Surg Hx/FS Hx/Imm Hx Endocrine/Hematology History: Reports: Hx Thyroid Disease - GOITER REMOVED Denies: Hx Diabetes Cardiovascular History: Reports: Hx Angina, Hx Deep Vein Thrombosis, Hx Hypertension, Other Cardiovascular Problems/Disorders - HISTORY BLOOD CLOTS BY BOTH ANKLES Denies: Hx Coronary Artery Disease, Hx Hypercholesterolemia, Hx Myocardial Infarction, Hx Pacemaker/ICD, Hx Valvular Heart Disease Respiratory History: Reports: Hx Sleep Apnea - CPAP Denies: Hx Asthma, Hx Chronic Obstructive Pulmonary Disease (COPD) GI History: Reports: Hx Gastroesophageal Reflux Disease, Hx Hiatal Hernia - SMALL PER PATIENT- DIAGNOSED YEARS AGO, Hx Ulcer, Other GI Disorders - GOUT- ON MEDICATION FOR History: Reports: Other Problems/Disorders - "LEAK A SMALL AMOUNT OF PROTEIN FROM KIDNEY'S" Denies: Hx Renal Disease - LACKING PROTEIN Musculoskeletal History: Reports: Hx Arthritis - KNEES Sensory History: Reports: Hx Cataracts - BILATERAL, Hx Contacts or Glasses - READING GLASSES Denies: Hx Hearing Aid Opthamlomology History: Reports: Hx Cataracts - BILATERAL, Hx Contacts or Glasses - READING GLASSES Psychiatric History: Reports: Hx Anxiety Denies: Hx Panic Disorder - Cancer History Hx Chemotherapy: No Hx Radiation Therapy: No - Surgical History Surgery Procedure, Year, and Place: CATARACTS-BILATERAL- 6 YEARS AGO-[facility]. BILATERAL KNEE ARTHROSCOPIES-[facility], [place]. RIGHT SHOULDER-[place]. GOITER REMOVED- [facility]. Rt FOOT - FOR HEEL SPUR, [place] [facility] Hx Anesthesia Reactions: No - Immunization History Date of Influenza Vaccine: 01/21/17 Infectious Disease History: No Infectious Disease History: Denies: Traveled Outside the [place] in Last 30 Days - Family History Known Family History: Positive: Other - Brain clot - Social History Alcohol Use: Weekly Alcohol Amount: 12 BEERS ON WEEKEND Substance Use Type: Reports: Marijuana Substance Use Comment - Amount & Last Used: MARIJUANA-MONDAY LAST USED Smoking Status (MU): Former Smoker Type: eCigarettes Amount Used/How Often: 1/2 PPD X 25 YEARS Have You Smoked in the Last Year: Yes Review of Systems Negative: Fever Positive: Nausea, Other - small rectal bleeding, something is protruding from her rectum per the nurses note Positive: Other - slight pain in left LE All Other Systems Reviewed And Are Negative: Yes Physical Exam - Summary Physical Exam Summary: VITAL SIGNS: Reviewed. GENERAL: Patient is a well-developed and nourished FEMALE who is lying comfortable in the stretcher. Patient is not in any acute respiratory distress. HEAD AND FACE: No signs of trauma. No ecchymosis, hematomas or skull depressions. No sinus tenderness. EYES: PERRLA, EOMI x 2, No injected conjunctiva, no nystagmus. EARS: Hearing grossly intact. Ear canals and tympanic membranes are within normal limits. MOUTH: Oropharynx within normal limits. NECK: Supple, trachea is midline, no adenopathy, no JVD, no carotid bruit, no c- spine tenderness, neck with full ROM. CHEST: Symmetric, no tenderness at palpation LUNGS: Clear to auscultation bilaterally. No wheezing or crackles. CVS: Regular rate and rhythm, S1 and S2 present, no murmurs or gallops appreciated. ABDOMEN: Soft, non-tender. No signs of distention. No rebound no guarding, and no masses palpated. Bowel sounds are normal. EXTREMITIES: FROM in all major joints, no edema, no cyanosis or clubbing. NEURO: Alert and oriented x 3. No acute neurological deficits. Speech is normal and follows commands. SKIN: Dry and warm GIGU: Rectal Exam: Female Trade Show Manager was present. Tender, swollen area, perirectal at 9 oclock. External hemorrhoids at 3 o'clock, no active bleeding, no thrombosis. Triage Information Reviewed: Yes Vital Signs On Initial Exam: Initial Vitals Temp Pulse Resp BP Pulse Ox 99.4 F 122 18 150/103 97 01/20/18 17:49 01/20/18 17:49 01/20/18 17:49 01/20/18 17:49 01/20/18 17:49 Vital Signs Reviewed: Yes Diagnostics - Vital Signs Vital Signs Temp Pulse Resp BP Pulse Ox 01/20/18 17:49 99.4 F 122 18 150/103 97 - Laboratory Lab Statement: Any lab studies that have been ordered have been reviewed, and results considered in the medical decision making process. Re-Evaluation - Re-Evaluation First Eval Re-Evaluation Time: 20:44 Comment: Dicsussed consult with Dr. Villagran. Obtained culture from rectal discharge. Patient understands plan for discharge and agrees. GIGU Course/Dx - Course Assessment/Plan: This patient is a 57 year old F presenting to ED with a chief complaint of small rectal bleeding with her stool since 1 week ago. At 2030, when examining the patient faced down, we tried to give numbing medication, but the patient was having pus discharge from her rectum. Stated she has been having this problem for [address] Villagran at 2036 who said that if the abscess is draining from inside, there is no need to drain it. Give the patient oral abx (augmentin) and discharge her to see him in his office on Monday. The patient will be discharged with augmentin and percocet and instructions to take a sitz bath, having regular BM by having more fiber in her diet, and to see Dr. Villagran on Monday morning. Patient understands plan for discharge and agrees. - Diagnoses Provider Diagnoses: Perirectal abscess - Physician Notifications Discussed Care Of Patient With: Sandip Villagran Time Discussed With Above Provider: 20:37 Instructed by Provider To: Other - Discussed with Dr. Villagran at 2036 who said that if the abscess is draining from inside, there is no need to drain it. Give the patient oral abx (augmentin) and discharge her to see him in his office on Monday. Discharge - Sign-Out/Discharge Documenting (check all that apply): Patient Departure - discharge - Discharge Plan Condition: Stable Disposition: HOME Prescriptions: Amoxicillin/Clavulanate TAB* [Augmentin TAB 875*] 875 mg PO BID #20 tab oxyCODONE/Acetamin 5/325 MG* [Percocet 5/325 TAB*] 1 tab PO Q6H PRN #14 tab MDD 4 PRN Reason: Pain Patient Education Materials: Rectal Abscess (ED) Referrals: Sandip Villagran MD [Medical Doctor] - 01/22/18 Additional Instructions: Take the antibiotics and pain medications and see Dr. Villagran on Monday morning, 01/22/18. Take a sitz bath and make sure to have easy, regular bowel movements by having more fiber in your diet. RETURN TO THE EMERGENCY DEPARTMENT FOR CHANGING OR WORSENING SYMPTOMS. FOLLOW UP WITH PCP IN 1-2 DAYS. - Attestation Statements Document Initiated by Scribe: Yes Documenting Scribe: Sergio Ma Provider For Whom Scribe is Documenting (Include Credential): Francois Garner MD Scribe Attestation: Sergio Oglesby, scribed for Francois Garner MD on 01/20/18 at 2108.
[2018-01-20] MEDS ORDERED: HYDROmorphone INJ1* 1 MG/ML SYRINGE ONE (20:07)
[2018-01-20] MEDS ORDERED: Lidocaine 2% EPI 1:200000 MPF*10-20 ML VIAL ONE (20:28)
[2018-01-20] MEDS ORDERED: Amoxicillin/Clavulanate TAB* 875 MG PO ONE (20:46)
[2018-01-20 22:09] VITALS: BP 132/85
--- NOTE | 2018-01-23 06:15 | PN ---
Progress Note - Progress Note Date of Service: 01/20/18 Note: Patient presented on 01/20/18 with ifeoma-rectal pain. Wound culture sent and patient was placed on Augmentin. Wound culture grew Staph Aureus+ We will await final results prior to calling patient.
== END 2018-01-20 22:09 | disposition home or self-care (01) ==
LOC: ED 17:47
DX: K61.1 Rectal abscess (principal); F17.290 Nicotine dependence, other tobacco product, uncomplicated; I10 Essential (primary) hypertension; Z86.718 Personal history of other venous thrombosis and embolism; G47.30 Sleep apnea, unspecified; K21.9 Gastro-esophageal reflux disease without esophagitis; F41.9 Anxiety disorder, unspecified; M10.9 Gout, unspecified; B95.61 Methicillin susceptible Staphylococcus aureus infection as the cause of diseases classified elsewhere
CPT/HCPCS: 87070; 87077; 87186; 96372; 99283; A9270-GY; J0780; J1170

== ENCOUNTER 2018-10-08 23:20 | Inpatient (IN) | payer OTHER ==
[2018-10-09] MEDS ORDERED: NS 0.9% 1000 ML** 1,000 ML IV ONE ×3 (01:30→04:18)
[2018-10-09] MEDS ORDERED: Metoclopramide IV* 5 MG/ML 2 ML VIAL IV SLOW PU ONE (01:30)
--- NOTE | 2018-10-09 01:30 | ED ---
Abdominal Pain/Female - HPI Summary HPI Summary: Patient is a 58 y/o F presenting to ED with complaints of LLQ pain radiating into left flank. She notes that she was evaluated at [facility] on 10/07/2018 and was diagnosed with UTI. Patient has been taking Levaquin, and has taken two doses in total. Present Sx onset 10/08/2018. Patient notes that she is nauseous but denies vomiting. Fever is endorsed as well, with highest temp being 103 F, per patient. She denies Hx of kidney stones and notes that she did not have a CT ABD /PEL when she was in ED on 10/07. She is on a blood thinner as a result of having developed blood clots after a knee replacement in December 2016. Patient endorses occasional alcohol usage. On triage, pain is rated 8/10, sitting up is noted to aggravate Sx. Home medications and allergies are reviewed. - History of Current Complaint Chief Complaint: EDFlankPain Stated Complaint: ABD PAIN PER PT Time Seen by Provider: 10/09/18 01:21 Hx Obtained From: Patient Onset/Duration: Still Present Timing: Constant Severity Currently: Severe Pain Intensity: 8 Pain Scale Used: 0-10 Numeric Location: Discrete At: LLQ Radiates: Yes Radiates to: Flank - left Aggravating Factor(s): Movement - sitting up Alleviating Factor(s): Nothing Associated Signs and Symptoms: Positive: Fever, Nausea. 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 Denies: Hx Coronary Artery Disease, Hx Hypercholesterolemia, Hx Myocardial Infarction, Hx Pacemaker/ICD, Hx Valvular Heart Disease Respiratory History: Reports: Hx Sleep Apnea - CPAP Denies: Hx Asthma, Hx Chronic Obstructive Pulmonary Disease (COPD) GI History: Reports: Hx Gastroesophageal Reflux Disease, Hx Hiatal Hernia - SMALL PER PATIENT- DIAGNOSED YEARS AGO, Hx Ulcer, Other GI Disorders - GOUT- ON MEDICATION FOR History: Reports: Other Problems/Disorders - "LEAK A SMALL AMOUNT OF PROTEIN FROM KIDNEY'S" Denies: Hx Renal Disease - LACKING PROTEIN Musculoskeletal History: Reports: Hx Arthritis - KNEES Sensory History: Reports: Hx Cataracts - BILATERAL, Hx Contacts or Glasses - READING GLASSES Denies: Hx Hearing Aid Opthamlomology History: Reports: Hx Cataracts - BILATERAL, Hx Contacts or Glasses - READING GLASSES Psychiatric History: Reports: Hx Anxiety Denies: Hx Panic Disorder - Cancer History Hx Chemotherapy: No Hx Radiation Therapy: No - Surgical History Surgery Procedure, Year, and Place: BILATERAL CATARACTS. RIGHT ANKLE. GOITER REMOVED. TOTAL LEFT KNEE REPLACEMENT. BILATER KNEE ARTHROSCOPIC. RIGHT SHOULDER Hx Anesthesia Reactions: No - Immunization History Date of Influenza Vaccine: 01/21/17 Infectious Disease History: No Infectious Disease History: Denies: Traveled Outside the [place] in Last 30 Days - Family History Known Family History: Positive: Other - Brain clot - Social History Alcohol Use: Occasionally Alcohol Amount: 12 Hx Substance Use: Yes Substance Use Type: Reports: Marijuana Substance Use Comment - Amount & Last Used: 1-2x on weekends Hx Tobacco Use: Yes Smoking Status (MU): Light Every Day Tobacco Smoker Type: eCigarettes Amount Used/How Often: 1/2 PPD X 25 YEARS Have You Smoked in the Last Year: Yes Review of Systems Positive: Fever Positive: Abdominal Pain - LLQ , Nausea. Negative: Vomiting Positive: flank pain - left All Other Systems Reviewed And Are Negative: Yes Physical Exam - Summary Physical Exam Summary: VITAL SIGNS: Reviewed. GENERAL: Patient is a well-developed and nourished female who is lying comfortable in the stretcher. Patient is not in any acute respiratory distress. HEAD AND FACE: No signs of trauma. No ecchymosis, hematomas or skull depressions. No sinus tenderness. EYES: PERRLA, EOMI x 2, No injected conjunctiva, no nystagmus. EARS: Hearing grossly intact. Ear canals and tympanic membranes are within normal limits. MOUTH: Oropharynx within normal limits. NECK: Supple, trachea is midline, no adenopathy, no JVD, no carotid bruit, no c- spine tenderness, neck with full ROM CHEST: Symmetric, no tenderness at palpation LUNGS: Clear to auscultation bilaterally. No wheezing or crackles. CVS: Regular rate and rhythm, S1 and S2 present, no murmurs or gallops appreciated. ABDOMEN: Soft, LLQ and left CVA tenderness is noted. No signs of distention. No rebound no guarding, and no masses palpated. Bowel sounds are normal. EXTREMITIES: FROM in all major joints, no edema, no cyanosis or clubbing. NEURO: Alert and oriented x 3. No acute neurological deficits. Speech is normal and follows commands. SKIN: Dry and warm Triage Information Reviewed: Yes Vital Signs On Initial Exam: Initial Vitals Temp Pulse Resp BP Pulse Ox 97.9 F 87 18 173/102 99 10/08/18 23:21 10/08/18 23:21 10/08/18 23:21 10/08/18 23:21 10/08/18 23:21 Vital Signs Reviewed: Yes Procedures - Central Line Right Jugular Triple Lumen Central Venous Catheter Central Line Lumen: triple Central Line Procedure: betadine prep, sterile drapes applied, sterile dressing applied Central Line Position: internal jugular (R) Anesthesia: Lidocaine - 2% with epi Complications: none Central Line Post Position: sutured, good blood return, position confirmed w/ CXR Diagnostics - Vital Signs Vital Signs Temp Pulse Resp BP Pulse Ox 10/08/18 23:21 97.9 F 87 18 173/102 99 - Laboratory Result Diagrams: 10/09/18 01:56 10/09/18 01:56 Lab Statement: Any lab studies that have been ordered have been reviewed, and results considered in the medical decision making process. - Radiology CXR Radiology Interpretation Completed By: ED Physician Summary of Radiographic Findings: CXR showed right IJ central line in place, tip of central line at the distal superior vena cava, no pneumothorax. Pending official report. - CT ABD/PEL CT Interpretation Completed By: Radiologist Summary of CT Findings: IMPRESSION: Left renal mass. Renal ultrasound is recommended for further evaluation. Left perinephric stranding. Colonic diverticulosis. THIS REPORT WAS REVIEWED BY DR. HALE. Re-Evaluation - Re-Evaluation First Eval Re-Evaluation Time: 05:42 Comment: Central line was successfully placed. Patient to be admitted [place] [facility] [place] Abdominal Pain Fem Course/Dx - Course Course Of Treatment: Patient is a 58 y/o F presenting to ED with complaints of LLQ pain radiating into left flank. She notes that she was evaluated at [facility] on 10/07/2018 and was diagnosed with UTI. Patient has been taking Levaquin, and has taken two doses in total. Present Sx onset 10/08/2018. Patient notes that she is nauseous but denies vomiting. Fever is endorsed as well, with highest temp being 103 F, per patient. She denies Hx of kidney stones and notes that she did not have a CT ABD/PEL when she was in ED on 10/07. She is on a blood thinner as a result of having developed blood clots after a knee replacement in December 2016. Patient endorses occasional alcohol usage. On physical exam, LLQ and left CVA tenderness is noted. Labs showed WBC 11.3, Hgb 11.2, Hct 34, absolute neuts 9.1, absolute monos 0.9, INR 2.16, sodium 129, potassium 3.2, chloride 97, carbon dioxide 20, anion gap 12, BUN 44, creatinine 2.99, glucose 104, CRP 313.04. UA showed 2+ protein, 3+ blood, trace leukocyte esterase, 3+ WBC and RBC. During ED course, patient received fluids, klor con er tab 10 meq , piperacillin sod/tazobactam sod 3.375 gm, 100 mls @ 200 mls/hr IVPB, reglan 10 mg IV and morphine [address] ABD/PEL IMPRESSION: Left renal mass. Renal ultrasound is recommended for further evaluation. Left perinephric stranding. Colonic diverticulosis. Patient remained hypotensive, central line placed. A triple lumen central line was placed at the right jugular. Patient was given lidocaine 2% with epi, fentanyl 100 mcg, and Versed 5 mg. Betadine prep, sterile drapes and dressing was applied. There were no complications, central line was sutured and had good blood return. CXR showed right IJ central line in place, tip of central line at the distal superior vena cava, no pneumothorax. Patient's case was discussed with Dr. Slaughter, Dr. Slaughter accepts for admission. - Diagnoses Provider Diagnoses: Septic shock, Left renal mass - Provider Notifications Discussed Care Of Patient With: Haritha Slaughter Time Discussed With Above Provider: 05:42 Instructed by Provider To: Other - Patient's case was discussed with Dr. Slaughter, Dr. Slaughter accepts for admission. Discharge ED - Sign-Out/Discharge Documenting (check all that apply): Patient Departure - admit Patient Received Moderate/Deep Sedation with Procedure: Yes - Discharge Plan Condition: Fair Disposition: ADMITTED TO [facility] Patient Education Materials: Moderate Sedation (ED) Referrals: Long Machado MD [Primary Care Provider] - - Attestation Statements Document Initiated by Scribe: Yes Documenting Scribe: ROSA HILLMAN Provider For Whom Scribe is Documenting (Include Credential): SARIKA HALE MD Scribe Attestation: IROSA, scribed for SARIKA HALE MD on 10/09/18 at 0611. Status of Scribe Document: Ready
[2018-10-09] MEDS: Morphine 4 MG/ML VIAL (1 ml) 4 MG/ML VIAL IV ONE ×2 (01:50→05:17)
[2018-10-09 02:09] LABS: ABS Lymphocytes 1.3 10^3/ul (1.0-4.8); ABS Monocytes 0.9 10^3/ul (0-0.8); ABS Neutrophils 9.1 10^3/ul (1.5-7.7); Eosinophil % 0.1 %; Hematocrit 34 % (35-47); Hemoglobin 11.2 g/dL (12.0-16.0); Lymphocyte % 11.6 %; Mean Corpuscular HGB Conc 33 g/dL (31-36); Mean Corpuscular Hemoglobin 28 pg (27-31); Mean Corpuscular Volume 83 fL (80-97); Mean Platelet Volume 9.6 fL (7.4-10.4); Platelet Count 159 10^3/uL (150-450); Red Blood Count 4.03 10^6 /uL (3.70-4.87); Red Cell Distribution Width 13 % (10-15); White Blood Count 11.3 10^3/uL (3.5-10.8)
[2018-10-09 02:13] LABS: Activated Partial Thrombo Time 34.5 seconds (26.0-38.0); INR 2.16 (0.82-1.09)
[2018-10-09 02:21] LABS: Urine Appearance Turbid; Urine Bacteria Absent (Absent); Urine Bilirubin Negative (Negative); Urine Blood 3+ (Negative); Urine Color Amber; Urine Glucose Negative (Negative); Urine Ketones Negative (Negative); Urine Nitrite Negative (Negative); Urine Protein 2+(100 mg/dL) (Negative); Urine Red Blood Cell 3+(>10/hpf) (Absent); Urine Specific Gravity 1.015 (1.010-1.030); Urine Urobilinogen Negative (Negative); Urine White Blood Cell 3+(>20/hpf) (Absent)
[2018-10-09 02:21] LABS: Albumin 3.7 g/dL (3.2-5.2); Albumin/Globulin Ratio 1.1 (1-3); BUN/Creatinine Ratio 14.7 (8-20); C Reactive Protein 313.04 mg/L (<8.01); Calcium 8.6 mg/dL (8.6-10.3); EGFR African American 19.6 (>60); EGFR Non-African American 16.2 (>60); Globulin 3.5 g/dL (2-4); Potassium 3.2 mmol/L (3.5-5.0); Total Bilirubin 0.8 mg/dL (0.2-1.0); Total Protein 7.2 g/dL (6.4-8.9)
[2018-10-09] MEDS ORDERED: Piperacillin/Tazobac ADVAN(*) 3.375 GM in NS 0.9% 100 ML* 100 ML IVPB ONE (03:16)
[2018-10-09] MEDS ORDERED: Potassium Chlor TAB* 10 MEQ TAB.ER PO ONE (03:53)
[2018-10-09] MEDS ORDERED: Lidocaine 2% w/ EPI 1:200,000* 20 ML SDV VIAL ONE (05:09)
[2018-10-09] MEDS ORDERED: Morphine 4 MG/ML VIAL (1 ml) 4 MG/ML VIAL ONE (05:14)
[2018-10-09] MEDS ORDERED: fentaNYL* 50 MCG/ML 2 ML VIAL (100 MCG VIAL) ONE (05:23)
[2018-10-09] MEDS ORDERED: Midazolam concentrated* 5 MG/ML 1 ml VIAL ONE (05:24)
[2018-10-09] MEDS ORDERED: Gabapentin CAP(*) 100 MG PO PRN (05:40)
[2018-10-09] MEDS ORDERED: Tapentadol(NF) 50 MG TAB PO PRN (05:40)
[2018-10-09] MEDS ORDERED: Dextrose 50% VIAL 50 ml IV PUSH PRN (05:41)
[2018-10-09] MEDS ORDERED: Ondansetron INJ* 2 MG/ML VIAL IV PRN (05:43)
[2018-10-09] MEDS ORDERED: NS 0.9% 1000 ML** 1,000 ML IV SCH (05:45)
[2018-10-09] MEDS ORDERED: Norepinephrine 16MCG/ML IVPRE* 4,000 MCG/250 ML BAG IV SCH (08:00)
[2018-10-09] MEDS: Insulin LISPRO* 1 UNITS UNIT SUBCUT SCH ×4 (08:51→20:42)
--- NOTE | 2018-10-09 09:04 | HP ---
HISTORY AND PHYSICAL: DATE OF ADMISSION: 10/09/18 PRIMARY CARE PROVIDER: Dr. Long Machado. CRIME SCENE INVESTIGATOR: Shirley Price, the patient's . CODES STATUS: Full. CHIEF COMPLAINT: Left flank pain. REASON FOR ADMISSION: Pyelonephritis and left renal mass and ALDA. SOURCE OF INFORMATION: HPI is obtained from the patient, who is an excellent historian as well as review of charts. HISTORY OF PRESENT ILLNESS: A 58-year-old female with past medical history of hypertension; insulin-dependent diabetes; DISHA, on CPAP; gout; hypertension; chronic pain; tobacco use; history of provoked DVT, currently on anticoagulation , who presented twice to the emergency room in the last 2 days with complaint of left lower quadrant and left flank pain, accompanied by nausea, vomiting, and fevers and chills. The patient reports that fevers and chills actually started roughly 5 days ago and then she started having localizing left lower quadrant flank pain that radiated towards her groin. She initially presented to the ED and was found to have UTI, was started on Levaquin, went home, and took 2 doses, although her pain continued to worsen and then became accompanied by nausea and vomiting. Thus she decided to re-present to the emergency room. She also notes that her urine has become very dark and brownish in color. EMERGENCY ROOM COURSE: Initially, the patient was hypertensive at 173/102 with heart rate 87, temperature 97.9, satting 99% on room air with respiratory rate 18. Labs showed a leukocytosis to 11, which was improved from 16.3 on 10/07/18 labs. Creatinine elevated at 2.99, worse than her presentation at 1.66 two days prior. Sodium 129, creatinine 3.2, BUN 44. UA noted to have white blood cell 2 + in blood. She had a CT scan, which showed perinephric stranding of the left kidney as well as a possible renal mass, which would be new. Over the course of her emergency room course, she actually became progressively hypotensive, she was given 3 L of normal saline. Her lactic acid remained flat. She was given metoclopramide, potassium, and Zosyn after cultures were drawn and ultimately a central line was placed in the right IJ by emergency room staff for possible need for pressors, although the patient was mentating throughout. Given her new renal mass, acute kidney injury and pyelonephritis, hospitalist team was asked to admit the patient for further evaluation and treatment. PAST MEDICAL HISTORY: Hypertension; insulin-dependent diabetes; DISHA, on CPAP; gout; hypertension; chronic pain; tobacco use; history of provoked DVT in December 2016, currently on anticoagulation. PAST SURGICAL HISTORY: Partial thyroidectomy, bilateral cataracts, left total knee replacement, left knee arthroscopic, right shoulder and right ankle arthroscopic surgeries. MEDICATIONS: 1. Apixaban 5 mg p.o. b.i.d. 2. Glipizide 5 mg p.o. daily. 3. Insulin glargine 40 units subcutaneous q.h.s. 4. Levofloxacin 750 mg p.o. daily. 5. Losartan 100 mg p.o. daily. 6. Metformin 1500 mg p.o. daily. 7. Methocarbamol 750 mg p.o. daily p.r.n. 8. Nisoldipine 17 mg p.o. q.a.m. 9. Ondansetron 4 mg p.o. q.6 hours p.r.n. 10. Triamterene/HCTZ 2 caps p.o. q.a.m. at 37.5/25 mg dose. 11. Allopurinol 100 mg p.o. q.a.m. 12. Gabapentin 100 mg p.o. t.i.d. 13. Pantoprazole 40 mg p.o. daily. 14. Simvastatin 20 mg p.o. daily. 15. Tapentadol 50 mg p.o. q.4 hours p.r.n. for pain. ALLERGIES: No known drug allergies. FAMILY HISTORY: Positive for breast cancer in mother and sister and father with brain aneurysm. 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 She is a former half pack per day smoker for 25 years and she currently is using e- cigarette. Alcohol: She drinks 1 to 2 drinks per month. Illicits: Denies ever IVDU, occasional marijuana. REVIEW OF SYSTEMS: Constitutional: Positive for fevers and chills. Malaise for 5 days prior to admission. Denies unintentional weight loss or weight gain. HEENT: Negative for headaches, vision changes, sore throat, difficulty swallowing. Cardiovascular: Negative for chest pain, palpitations, orthopnea. Respiratory: Negative for shortness of breath, cough, pleuritic chest pain. GI : Negative for diarrhea, abdominal pain. Positive for nausea and vomiting. Left flank pain. : Positive for left flank pain, but negative for dysuria or renee hematuria. Musculoskeletal: Negative for myalgias, arthralgias. Positive for weakness. Skin: Negative for new rashes or lesions. Neurologic: Negative for new focal weakness or numbness. Psychiatric: Negative for depression, anxiety. Endocrine: Negative for polyuria, polydipsia. Heme: Negative for easy bruising, bleeding, or lymphadenopathy. Allergies: Negative for frequent or seasonal infections. PHYSICAL EXAMINATION GENERAL APPEARANCE: This is a pleasant well-appearing woman, lying in bed, in no acute distress, conversant, A and O x4. VITAL SIGNS: At the time of physical exam, blood pressure is 85/59, heart rate is 83, respiratory rate is 29, oxygen saturation is 92% on room air. The patient is afebrile. HEENT: Pupils are equal and reactive. Extraocular muscles are intact. Sclerae are anicteric. Oropharynx is clear. The patient is edentulous. She has moist mucous membranes. NECK: Thick, but supple with no supraclavicular or cervical lymphadenopathy. RESPIRATORY: Lungs are clear to auscultation bilaterally. CARDIAC: Regular rate and rhythm. No murmurs, rubs, or gallops with distant heart sounds. ABDOMEN: Belly is obese, distended, but soft, nontender with normoactive bowel sounds and no rebound or guarding. SKIN: With no rashes or lesions. BACK AND SPINE: Costovertebral angle tenderness on left is positive, but otherwise unremarkable. EXTREMITIES: No edema, warm, well perfused. 2+ pulses. NEUROLOGIC: Cranial nerves II through XII are intact. No focal neurologic deficits, A and O x3. Pleasant, conversant with exam. DIAGNOSTIC STUDIES/LAB DATA: CBC: White blood cell count 11.3, hemoglobin 11.2, hematocrit 34, platelets 159. INR 2.16. Chemistry: Sodium 129, potassium 3.2, chloride 97, carbon dioxide 20, anion gap 12, BUN 44, creatinine 2.99, glucose 104, lactic acid 1.4, AST 22, ALT 16, alk phos 65, CRP at 313. Urine shows 2+ protein, 3+ blood. Prior microbiology from ER visit, 10/07/18 shows klebsiella with no sensitivities. Imaging: Includes chest x-ray from 10/07/18 with no acute cardiopulmonary process and EKG from 10/07/18, which showed sinus rhythm with no acute ischemia. Abdomen and pelvis CT from 10/09/18 shows left perinephric stranding and left renal mass, incidental diverticulosis without diverticulitis. Chest x-ray confirming placement of central line is pending. Imaging and labs reviewed by myself. ASSESSMENT AND PLAN: This is a 58-year-old female with past medical history of hypertension; obstructive sleep apnea, on CPAP; insulin-dependent diabetes; gout ; hypertension; chronic pain; history of provoked DVT in 2017, currently on anticoagulation, who has presented to the emergency room twice in 2 days with left flank pain, nausea, vomiting, and fever, and is found to have left pyelonephritis, left renal mass, and acute kidney injury. 1. Pyelonephritis. Prior culture data from emergency room shows klebsiella without sensitivity. At this time, we will continue the patient on cefepime and await cultures. She has been pancultured. 2. Hypertension. The patient currently not meeting sepsis criteria. She has mild leukocytosis. No tachycardia. No tachypnea. No fever and lactic acid is flat. We will continue to monitor. She has access in the event MAPs are persistently less than 65. 2. Acute kidney infection. Carcamo is placed for monitoring of urine output, most likely this is multifactorial with prerenal component in the setting of hypertension, poor p.o. intake. Her pyelonephritis as well as a component of intrinsic acute kidney injury from renal mass, involve Nephrology and trend creatinine. lastly, pt should be evaluated for post obstructive renal complications with new mass. She has associated anion gap, metabolic acidosis due to most likely secondary to starvation ketosis as lactic acid was flat. She also does have mildly elevated BUN at 44. No acute indications for acute renal replacement at this time. 3. Left renal mass. Renal ultrasound is recommended as the modality of choice for imaging, which is ordered. Oncology will be consulted in the morning. We will also likely need biopsy once pyelonephritis has resolved. 4. Chronic pain. We will continue the patient's aranza, tapentadol, and Tylenol , and hold methocarbamol. 5. Insulin-dependent diabetes. Holding her metformin and glipizide. We will start [id number] by glucose monitoring and continue Lantus, her home dose is 40 units, we will start at 30 units, and offer sliding scale Lispro. 6. Gout. We will continue allopurinol. It is currently renally dosed at 100 mg daily. 7. Obstructive sleep apnea. The patient's home CPAP is at 8, we will continue to offer her hospital-acquired equipment here. 8. Hyperlipidemia. Continue home simvastatin. 9. Hypertension. Given hypotension, we will hold her home antihypertensives such losartan, nisoldipine, and triamterene/HCTZ. Can resume if blood pressure improves. 10. Gastroesophageal reflux disease. Continue home PPI. 11. History of DVT provoked. The patient remains on anticoagulation outside of window recommended for provoked DVT, nonetheless we will continue and defer to outpatient discussions with primary care providers. 12. DVT prophylaxis: She is therapeutically anticoagulated with Eliqjs and has changed doses to match her renal insufficiency at 2.5 mg p.o. b.i.d. 13. FEN: Carb consistent diet. 14. Disposition. We will admit the patient to ICU given hypertension and recent central line placement and may need closer monitoring, may be transferred out if remains hemodynamically stable. 15. Lines and tubes: IJ triple lumen is placed in the emergency room on . 16. Code status is full. Discussed with the patient. TIME SPENT: Sixty minutes was spent in the planning of this admission with over half of that spent directly at the bedside with the patient providing direct patient care. Plan of care is discussed with the patient, who agrees and has no further questions. [id number] #: [id number] JENNIFER
[2018-10-09] MEDS: Cefepime 2 GM in Dextrose(*) 2 GM/50 ML BAG IV SCH (09:26)
[2018-10-09] MEDS: Atorvastatin* 10 MG TAB PO SCH (09:31)
[2018-10-09] MEDS: Pantoprazole TAB * 40 MG TAB PO SCH (09:31)
[2018-10-09] MEDS: Allopurinol TAB* 100 MG PO SCH (09:31)
[2018-10-09] MEDS: Apixaban* 2.5 MG TAB PO SCH ×2 (09:32→20:42)
[2018-10-09] MEDS: Morphine 4 MG/ML VIAL (1 ml) 4 MG/ML VIAL IV PRN (10:03)
--- NOTE | 2018-10-09 10:03 | PN ---
Date of Service: 10/09/18 Critical Care Services: remains hypotensive. now on Levophed. s/p 3 liters IVF's Renal US no obstruction. CT abd shows mass left kidney, non-obstructing good UOP Vital Signs: Temp Pulse Resp BP SpO2 FiO2 98.2 F 84 24 91/53 96 10/09/18 06:47 10/09/18 06:47 10/09/18 06:47 10/09/18 06:47 10/09/18 06:47 Physical Exam: Gen: AO times 3. NAD HEENT: EOMI Lungs: CTA B/L Cardiac: RRR Abdomen:+ BS's. Soft, NTP but left CP angle tender to palpation Extremities: No ANNIE Neuro: No focal deficits Fluid Balance (Past 24 Hours): I= O= Net Intake & Output 10/07/18 10/08/18 10/09/18 10/10/18 06:59 06:59 06:59 06:59 Intake Total 350 Balance 350 Weight 252 lb Intake: Oral 350 Labs: Laboratory Results - last 24 hr 10/09/18 10/09/18 10/09/18 01:56 01:56 01:56 WBC 11.3 H RBC 4.03 Hgb 11.2 L Hct 34 L MCV 83 MCH 28 MCHC 33 RDW 13 Plt Count 159 MPV 9.6 Neut % (Auto) 80.2 Lymph % (Auto) 11.6 [place] % (Auto) 7.8 Eos % (Auto) 0.1 Baso % (Auto) 0.3 Absolute Neuts (auto) 9.1 H Absolute Lymphs (auto) 1.3 Absolute Monos (auto) 0.9 H Absolute Eos (auto) 0.0 Absolute Basos (auto) 0.0 Absolute Nucleated RBC 0.0 Nucleated RBC % 0.0 INR (Anticoag Therapy) 2.16 H APTT 34.5 Sodium 129 L Potassium 3.2 L Chloride 97 L Carbon Dioxide 20 L Anion Gap 12 H BUN 44 H Creatinine 2.99 H Est GFR ( Amer) 19.6 Est GFR (Non-Af Amer) 16.2 BUN/Creatinine Ratio 14.7 Glucose 104 H POC Glucose (mg/dL) Lactic Acid Calcium 8.6 Total Bilirubin 0.80 AST 22 ALT 16 Alkaline Phosphatase 65 C-Reactive Protein 313.04 H Total Protein 7.2 Albumin 3.7 Globulin 3.5 Albumin/Globulin Ratio 1.1 Urine Color Urine Appearance Urine pH Ur Specific [place] Urine Protein Urine Ketones Urine Blood Urine Nitrate Urine Bilirubin Urine Urobilinogen Ur Leukocyte Esterase Urine WBC (Auto) Urine RBC (Auto) Urine Bacteria Urine Glucose 10/09/18 10/09/18 10/09/18 01:56 02:00 05:05 WBC RBC Hgb Hct MCV MCH MCHC RDW Plt Count MPV Neut % (Auto) Lymph % (Auto) [place] % (Auto) Eos % (Auto) Baso % (Auto) Absolute Neuts (auto) Absolute Lymphs (auto) Absolute Monos (auto) Absolute Eos (auto) Absolute Basos (auto) Absolute Nucleated RBC Nucleated RBC % INR (Anticoag Therapy) APTT Sodium Potassium Chloride Carbon Dioxide Anion Gap BUN Creatinine Est GFR ( Amer) Est GFR (Non-Af Amer) BUN/Creatinine Ratio Glucose POC Glucose (mg/dL) Lactic Acid 1.4 0.6 Calcium Total Bilirubin AST ALT Alkaline Phosphatase C-Reactive Protein Total Protein Albumin Globulin Albumin/Globulin Ratio Urine Color Connie Urine Appearance Turbid Urine pH 5.0 Ur Specific [place] 1.015 Urine Protein 2+(100 mg/dl) A Urine Ketones Negative Urine Blood 3+ A Urine Nitrate Negative Urine Bilirubin Negative Urine Urobilinogen Negative Ur Leukocyte Esterase Trace A Urine WBC (Auto) 3+(>20/hpf) A Urine RBC (Auto) 3+(>10/hpf) A Urine Bacteria Absent Urine Glucose Negative 10/09/18 10/09/18 08:46 08:49 WBC RBC Hgb Hct MCV MCH MCHC RDW Plt Count MPV Neut % (Auto) Lymph % (Auto) [place] % (Auto) Eos % (Auto) Baso % (Auto) Absolute Neuts (auto) Absolute Lymphs (auto) Absolute Monos (auto) Absolute Eos (auto) Absolute Basos (auto) Absolute Nucleated RBC Nucleated RBC % INR (Anticoag Therapy) APTT Sodium Potassium Chloride Carbon Dioxide Anion Gap BUN Creatinine Est GFR ( Amer) Est GFR (Non-Af Amer) BUN/Creatinine Ratio Glucose POC Glucose (mg/dL) 63 L 99 Lactic Acid Calcium Total Bilirubin AST ALT Alkaline Phosphatase C-Reactive Protein Total Protein Albumin Globulin Albumin/Globulin Ratio Urine Color Urine Appearance Urine pH Ur Specific [place] Urine Protein Urine Ketones Urine Blood Urine Nitrate Urine Bilirubin Urine Urobilinogen Ur Leukocyte Esterase Urine WBC (Auto) Urine RBC (Auto) Urine Bacteria Urine Glucose Impression: Septic shock with K. Pneumo urine 10/07/09 Mass left kidney of unclear etiology ALDA MELISSA Hx Hx of DM Hx DISHA on CPAP at home Plan: Continue Levophed. Keep MAP >65 Continue Cefepime coverage D/W Urology, Dr. Walden. Patient will need f/u CT with contrast as outpatient. No Urology interventions this admission and they do not feel she has obstructing lesion and patient in ALDA continue to f/u UOP and renal functions. Repeat CMP this evening Urine Cx's from this admission pending Continue insulin SC continue home CPAP Critical Care Time: 55
[2018-10-09] MEDS: Acetaminophen TAB* 325 MG PO PRN (13:49)
[2018-10-09] MEDS: NS 0.9% 1000 ML** 1,000 ML IV SCH ×2 (15:13→21:35)
[2018-10-09 15:38] LABS: BUN/Creatinine Ratio 15.2 (8-20); Calcium 7.6 mg/dL (8.6-10.3); EGFR African American 23.3 (>60); EGFR Non-African American 19.3 (>60); Potassium 3.4 mmol/L (3.5-5.0)
[2018-10-09] MEDS: Insulin GLARGINE(*) 1 UNITS UNIT SUBCUT SCH (18:48)
[2018-10-10] MEDS: Acetaminophen TAB* 325 MG PO PRN ×2 (00:14→11:18)
[2018-10-10] MEDS: Morphine 4 MG/ML VIAL (1 ml) 4 MG/ML VIAL IV PRN (00:38)
[2018-10-10 05:28] LABS: Hematocrit 27 % (35-47); Hemoglobin 9.2 g/dL (12.0-16.0); Mean Corpuscular HGB Conc 34 g/dL (31-36); Mean Corpuscular Hemoglobin 28 pg (27-31); Mean Corpuscular Volume 84 fL (80-97); Mean Platelet Volume 9.9 fL (7.4-10.4); Platelet Count 122 10^3/uL (150-450); Red Blood Count 3.26 10^6 /uL (3.70-4.87); Red Cell Distribution Width 14 % (10-15); White Blood Count 6.3 10^3/uL (3.5-10.8)
[2018-10-10 05:46] LABS: BUN/Creatinine Ratio 15.4 (8-20); Calcium 7.6 mg/dL (8.6-10.3); EGFR African American 26.8 (>60); EGFR Non-African American 22.2 (>60)
[2018-10-10] MEDS: Insulin LISPRO* 1 UNITS UNIT SUBCUT SCH ×4 (07:43→21:21)
[2018-10-10] MEDS: Cefepime 2 GM in Dextrose(*) 2 GM/50 ML BAG IV SCH (07:44)
[2018-10-10] MEDS: Allopurinol TAB* 100 MG PO SCH (07:44)
[2018-10-10] MEDS: Apixaban* 2.5 MG TAB PO SCH ×2 (07:44→19:44)
[2018-10-10] MEDS: Pantoprazole TAB * 40 MG TAB PO SCH (07:44)
[2018-10-10] MEDS: Atorvastatin* 10 MG TAB PO SCH (07:44)
--- NOTE | 2018-10-10 10:29 | PN ---
Date of Service: 10/10/18 Critical Care Services: patient off Levophed since 10 pm last night. Remains hemodynamically stable Renal functions improving. Good UOP UCx's and BCx's from this admission still pending Vital Signs: Temp Pulse Resp BP SpO2 FiO2 99.7 F 90 29 104/76 92 10/10/18 07:41 10/10/18 10:01 10/10/18 10:01 10/10/18 10:01 10/10/18 10:01 Physical Exam: Gen:Sitting in chair HEENT: EOMI Lungs:CTA B/L Cardiac: RRR Abdomen:+ BS's, soft, NTP. No rebound or guarding. No CV tenderness Extremities: No ANNIE Neuro: No focal deficits Fluid Balance (Past 24 Hours): I= O= Net Intake & Output 10/08/18 10/09/18 10/10/18 10/11/18 06:59 06:59 06:59 06:59 Intake Total 4982.4 240 Output Total 3570 500 Balance 1412.4 -260 Weight 252 lb 261 lb 11.896 oz Intake: IV Fluids 2870 NS (0.9%) 2870 IVPB 68 ABX - CEFEPIME 68 Medicated IV 124.4 CC - Norepinephrine/ 124.4 Levophed Oral 1920 240 Output: Mitchell 3570 500 A Labs: Laboratory Results - last 24 hr 10/09/18 10/09/18 10/10/18 11:52 15:00 05:14 WBC 6.3 RBC 3.26 L Hgb 9.2 L Hct 27 L MCV 84 MCH 28 MCHC 34 RDW 14 Plt Count 122 L MPV 9.9 Sodium 133 L Potassium 3.4 L Chloride 105 Carbon Dioxide 18 L Anion Gap 10 BUN 39 H Creatinine 2.57 H Est GFR ( Amer) 23.3 Est GFR (Non-Af Amer) 19.3 BUN/Creatinine Ratio 15.2 Glucose 146 H POC Glucose (mg/dL) 97 Calcium 7.6 L 10/10/18 05:14 WBC RBC Hgb Hct MCV MCH MCHC RDW Plt Count MPV Sodium 136 Potassium 4.0 Chloride 110 Carbon Dioxide 17 L Anion Gap 9 BUN 35 H Creatinine 2.28 H Est GFR ( Amer) 26.8 Est GFR (Non-Af Amer) 22.2 BUN/Creatinine Ratio 15.4 Glucose 94 POC Glucose (mg/dL) Calcium 7.6 L Impression: s/p septic shock ALDA Hx of MELISSA now rate controlled Hx of K.Pneum in urine (10/07/18) Mass L kidney of unknown etiology DISHA Hx of DM Plan: Continue IVF's Continue Cefepime. F/U Urine and blood cx's from this admission Patient will need Urology consult f/u. Prior to d/c home please alert Urology service so they can make an appointment for her. Patient may transfer to floor D/C TLC and mitchell Continue DOAC continue home CPAP settings Insulin SC Critical Care Time: 56
--- NOTE | 2018-10-10 11:18 | CONS ---
CC: Dr. Long Machado * UROLOGY CONSULTATION: DATE OF CONSULT: 10/09/18 REQUESTING PHYSICIAN: Dr. Guanakito Newell. DIAGNOSES: 1. Left renal mass. 2. Left-sided pyelonephritis. HISTORY OF PRESENT ILLNESS: Steffi Pires is a 58-year-old diabetic, who had been in the emergency room on 2 separate occasions in the last few days with complaints of left lower quadrant pain and left flank pain with nausea, vomiting , fevers, and chills. She had urine culture done on 10/07/18, which had shown Klebsiella, urinary tract infection, and on 10/09/18, she was admitted with urosepsis. She was hypotensive and actually required intravenous Levophed for a while in the ICU and is now responding to the intravenous antibiotics and hydration. During her workup, a CT scan without contrast was obtained, which revealed what appears to be a solid mass in the lower pole of the left kidney. There is no evidence of hydronephrosis and no evidence of any renal or ureteral calculi. She had a previous imaging study done in 2018, which had revealed low - density mass at the same level of the lower pole of the left kidney and an ultrasound was subsequently obtained, which confirmed approximately 4 to 5 cm solid- appearing mass in the lower pole of the left kidney with intrinsic blood flow noted. This is most likely a renal cell carcinoma, although there is a small possibility that this may represent an inflammatory lesion such as lobar nephronia, although the definitive study would be CT scan without and with intravenous contrast, which cannot be currently done because of her increased serum creatinine. PAST MEDICAL HISTORY: Significant for: 1. Hypertension. 2. Insulin-dependent diabetes. 3. History of obstructive sleep apnea. 4. Gout. 5. Hypertension. 6. Provoked deep venous thrombosis. 7. Smoking history. PAST SURGICAL HISTORY: Significant for left total knee replacement, left knee arthroscopy, right shoulder and right ankle arthroscopy, partial thyroidectomy, and bilateral cataract surgery. MEDIATIONS ON ADMISSION: 1. Glipizide 5 mg daily. 2. Insulin 40 units subcutaneous q.h.s. 3. Levofloxacin 750 mg daily. 4. Apixaban 5 mg twice a day. 5. Metformin 1500 mg daily. 6. Losartan 100 mg daily. 7. Nisoldipine 17 mg daily. 8. Methocarbamol 750 mg daily p.r.n. 9. Triamterene/hydrochlorothiazide 37.5/25 two capsules daily. 10. Gabapentin 100 mg 3 times a day. 11. Allopurinol 100 mg daily. 12. Simvastatin 20 mg daily. 13. Tapentadol 50 mg q.4 hours p.r.n. for pain. 14. Pantoprazole 40 mg daily. ALLERGIES: No known drug allergies. FAMILY HISTORY: Positive for breast cancer (sister and mother) and brain aneurysm (father). SOCIAL HISTORY: She is a former, half pack a day smoker for the last 25 to 30 years and is currently using e-cigarettes. PHYSICAL EXAMINATION: Reveals a pleasant middle-aged lady, who is sitting upright in bed in the ICU at the time of evaluation. Blood pressure 104/75, heart rate 79 per minute and regular, oxygen saturation 94%, temperature 98.4 ( her maximum temperature over the last 12 hours was 101.3). She has a right internal jugular central line in place and is alert and oriented. Cardiovascular Exam: Reveals regular rate and rhythm. S1, S2. Lungs are clear bilaterally. Abdomen is soft with mild left flank tenderness. DIAGNOSTIC STUDIES/LAB DATA: Review of her labs: Her most recent BUN and creatinine are 35 and 2.28 and prior to this, her creatinine was 2.57 and had been as high as 2.99 on this current admission. Looking further back in August of 2018, her baseline creatinine was 1.19. Her urine culture from 10/07/18 revealed Klebsiella and she also had a positive urine culture in May 2018, which revealed E. coli. SUMMARY: In summary, she is a 58-year-old diabetic with left-sided pyelonephritis and urinary sepsis, who is responding to the intravenous fluids and antibiotics. In addition, she has what I suspect is an incidentally discovered solid left renal mass. Once her renal function returns to baseline, I think the next step would be to consider getting a CT scan multiphase renal mass protocol to get a better outline of this mass and to look for the enhancement and then to proceed with the therapeutic measures based on that finding. If this is at all an inflammatory mass, then there should be resolution over the next few weeks and it should start approaching more the appearance of the normal kidney tissue. I discussed all this in detail with the patient and her family and also with Dr. Newell regarding the plan management and will be available to see her once she is ready for discharge as an outpatient. [id number]/[facility] #: [id number] JENNIFER
[2018-10-10] MEDS ORDERED: Morphine INJ* 2 MG/ML 1 ML SYRINGE (TWO MG - NEW SYRINGE VERSION) IV PRN (11:53)
[2018-10-10] MEDS: Insulin GLARGINE(*) 1 UNITS UNIT SUBCUT SCH (19:28)
[2018-10-11] MEDS: Insulin LISPRO* 1 UNITS UNIT SUBCUT SCH ×3 (09:06→17:18)
[2018-10-11] MEDS: Apixaban* 2.5 MG TAB PO SCH (09:07)
[2018-10-11] MEDS: Allopurinol TAB* 100 MG PO SCH (09:07)
[2018-10-11] MEDS: Atorvastatin* 10 MG TAB PO SCH (09:07)
[2018-10-11] MEDS: Cefepime 2 GM in Dextrose(*) 2 GM/50 ML BAG IV SCH (09:08)
[2018-10-11] MEDS: Pantoprazole TAB * 40 MG TAB PO SCH (09:08)
[2018-10-11 16:33] VITALS: BP 119/74
[2018-10-11] MEDS: Insulin GLARGINE(*) 1 UNITS UNIT SUBCUT SCH (18:19)
--- NOTE | 2018-10-11 22:42 | DS ---
CC: Dr. Richard Carmichael; Dr. Machado * DISCHARGE SUMMARY: DATE OF ADMISSION: 10/09/18 DATE OF DISCHARGE: 10/11/18 FINAL DISCHARGE DIAGNOSES: 1. Left pyelonephritis secondary to Klebsiella pneumoniae urinary tract infection, sensitive to Levaquin. 2. Septic shock manifested with hypotension. Blood pressure as low as 80s/50s. 3. Acute kidney injury. 4. Left kidney mass. 5. Obstructive sleep apnea. 6. Diabetes mellitus. 7. Hypertension. 8. Chronic pain. 9. History of provoked deep venous thrombosis, on chronic anticoagulation. HOSPITAL COURSE: The patient presented to [facility] on 10/09/18 in the emergency room for left flank pain. She was found to be hypertensive and associated with leukocytosis, white count of 11,000. She was admitted to the ICU for septic shock and received aggressive IV fluid resuscitation, covered with some broad spectrum antibiotics. CT scan was done, which revealed incidental left side renal mass with perinephric stranding. Therefore, she was treated for septic shock related to most likely pyelonephritis. She was transferred out of the ICU yesterday, 10/10/18, and she was seen by me today, . She was sitting in the bed, eager to go home. She was very emotional, looking forward to be discharged and will follow up with urology and all the instructions provided to her. I was able to go back and review her record from the ICU as well from her previous ER presentation, which was done on 10/07/18. At that time, she presented for similar symptoms, but she was given prescription for Levaquin, but she continued to have symptomatology, which led her to return to the emergency room. I was able to locate the culture from her ER visit, which revealed positive for Klebsiella pneumoniae UTI with negative blood culture and was sensitive to Levaquin, and her cultures from this admission were negative for both urine and blood, which means her Levaquin was sensitive as it did sterilize her urine and probably her presentation to the ER was due to insufficient time for the oral antibiotic to be adequately treating her infection. Now that she has been in the hospital and she received 3 days of intravenous antibiotic with known culture for Klebsiella pneumoniae that is sensitive to Levaquin and a repeat urine culture is negative; therefore, I deemed the patient stable to be released with oral regimen of Levaquin. PHYSICAL EXAMINATION: Her vital signs are temperature 98.5, pulse 72, respiratory rate 28, satting 98%, blood pressure 119/74. General: She is awake , alert, pleasant, taking her diet well. Head and Neck: Normocephalic, atraumatic. Supple. Lungs: Clear to auscultation. Abdomen: Positive bowel sounds, soft, nontender. Extremities: No pedal edema. DISCHARGE MEDICATIONS: She is discharged on the followin. Resume allopurinol 100 mg daily. 2. Resume gabapentin 100 t.i.d. 3. Resume Protonix 40 mg daily. 4. Resume simvastatin 20 daily. 5. Resume Eliquis 5 mg b.i.d. 6. Resume glipizide 5 daily. 7. Resume Lantus 100 units daily. 8. Resume levofloxacin 750 mg every other day, dose adjusted given her acute kidney injury. Prescription provided and she has a few pills left at home. 9. Losartan 100 mg daily, resume. 10. Methocarbamol 750 mg daily. 11. Nisoldipine 17 mg daily. 12. Zofran p.r.n., resume. 13. Nucynta 50 mg p.o. q.4 hours p.r.n. She was taken off her triamterene with hydrochlorothiazide. She was taken off her metformin given her acute kidney injury. DISCHARGE RECOMMENDATIONS: Follow up with Dr. Carmichael in 4 to 7 days. Take all medications as prescribed. Need to follow up with her primary in 1 to 2 weeks. The patient was instructed that she does have to follow up with Dr. Carmichael for followup of her CT scan and renal mass. I did discuss with Dr. Carmichael, who is aware of her discharge and advised to have the patient call the office and will follow up with her as an outpatient with further CT study. Message to primary to please follow up with her renal function to ensure proper resolution. Follow up for blood pressure as she was taken off her triamterene and hydrochlorothiazide as well as her metformin due to renal insufficiency. INPATIENT DIAGNOSTIC STUDY/IMAGING: CT scan abdomen and pelvis shows left renal mass with left perinephric stranding, colon diverticulosis. Renal ultrasound: Solid left renal mass suspicious for renal carcinoma. Recommend multiphase CT with IV contrast. This has not been done yet given her renal function. Chest x-ray: No acute pulmonary disease. CONSULTATION: ICU, Dr. Guanakito Newell and Urology, Dr. Richard Carmichael. DISCHARGE CONDITION: Stable. DISCHARGE DISPOSITION: Home. [id number] #: [id number] MTDD
== END 2018-10-11 20:18 | disposition home or self-care (01) | DRG 871 ==
LOC: ED 23:20 → ICU 10-09 05:38 → MEDTELE 10-10 10:23
PROVIDERS: ADMIT Internal Medicine; ATTEND Internal Medicine
PROC: 05HM33Z Insertion of Infusion Device into Right Internal Jugular Vein, Percutaneous Approach (ICD-10-PCS; principal; 2018-10-09)
PROC: 3E033XZ Introduction of Vasopressor into Peripheral Vein, Percutaneous Approach (ICD-10-PCS; 2018-10-09)
DX: A41.59 Other Gram-negative sepsis (principal); R65.21 Severe sepsis with septic shock; N17.9 Acute kidney failure, unspecified; N12 Tubulo-interstitial nephritis, not specified as acute or chronic; E11.9 Type 2 diabetes mellitus without complications; I10 Essential (primary) hypertension; K21.9 Gastro-esophageal reflux disease without esophagitis; M10.9 Gout, unspecified; M17.11 Unilateral primary osteoarthritis, right knee; Z96.652 Presence of left artificial knee joint; F41.9 Anxiety disorder, unspecified; F17.210 Nicotine dependence, cigarettes, uncomplicated; G89.29 Other chronic pain; G47.33 Obstructive sleep apnea (adult) (pediatric); E89.0 Postprocedural hypothyroidism; I48.91 Unspecified atrial fibrillation; K57.30 Diverticulosis of large intestine without perforation or abscess without bleeding; B96.1 Klebsiella pneumoniae [K. pneumoniae] as the cause of diseases classified elsewhere; N28.89 Other specified disorders of kidney and ureter; K44.9 Diaphragmatic hernia without obstruction or gangrene; Z87.11 Personal history of peptic ulcer disease; Z72.89 Other problems related to lifestyle; Z86.718 Personal history of other venous thrombosis and embolism; Z98.42 Cataract extraction status, left eye; Z98.41 Cataract extraction status, right eye; Z80.3 Family history of malignant neoplasm of breast; Z82.0 Family history of epilepsy and other diseases of the nervous system; Z79.01 Long term (current) use of anticoagulants; Z79.4 Long term (current) use of insulin
CPT/HCPCS: 36415; 71045; 74176; 76775; 80048; 80053; 81003; 81015; 83605; 85025; 85027; 85610; 85730; 86140; 87040; 87086; 87641; 99285; A9270-GY; J0692; J2250; J2270; J2543; J2765; J3010

== ENCOUNTER 2020-05-26 15:59 | Inpatient (IN) ==
[2020-05-26] MEDS ORDERED: NS 0.9% 1000 ml BAG 1,000 ML IV ONE (16:42)
[2020-05-26] MEDS ORDERED: Morphine 10 MG/ML VIAL (1 ml) IV ONE (16:48)
[2020-05-26] MEDS ORDERED: Cefepime 2 GM in Dextrose 2 GM/50 ML BAG IV ONE (16:50)
[2020-05-26] MEDS ORDERED: methylPREDNISolone 125 mg 2 ML VIAL IV ONE (17:13)
[2020-05-26] MEDS ORDERED: methylPREDNISolone 125 mg 2 ML VIAL IM ONE (17:34)
[2020-05-26] MEDS ORDERED: Ondansetron 4 mg VIAL 2 MG/ML 2 ml VIAL IV PRN (17:36)
[2020-05-26] MEDS ORDERED: Dextrose 50% Syringe 50 ml 25 GM/50 ML SYRINGE IV PUSH PRN (17:40)
[2020-05-26 17:56] LABS: Activated Partial Thrombo Time 31.6 seconds (26.0-38.0); INR 1.64 (0.82-1.09)
[2020-05-26 18:03] LABS: C Reactive Protein 256.89 mg/L (<8.01); Creatine Kinase 32 U/L (10-223); Magnesium 1.5 mg/dL (1.9-2.7)
[2020-05-26 18:08] LABS: Troponin I 0.03 ng/mL (<0.03)
[2020-05-26 18:09] LABS: Rapid COVID-19 Molecular Undetected (Undetected)
[2020-05-26] MEDS: NS 0.9% 1000 ml BAG 1,000 ML IV SCH (20:14)
[2020-05-27] MEDS: NS 0.9% 1000 ml BAG 1,000 ML IV SCH ×2 (00:21→12:18)
[2020-05-27 06:15] LABS: Urine Appearance Cloudy; Urine Bilirubin Negative (Negative); Urine Blood 3+ (Negative); Urine Color Yellow; Urine Glucose 3+(>=500 mg/dL) (Negative); Urine Ketones Negative (Negative); Urine Nitrite Negative (Negative); Urine Protein 3+(>=500 mg/dL) (Negative); Urine Urobilinogen Negative (Negative)
[2020-05-27 06:25] LABS: Urine Bacteria 1+ (Absent); Urine Red Blood Cell 3+(>10/hpf) (Absent); Urine Squamous Epithelial Cell Present (Absent); Urine White Blood Cell 2+(11-20/hpf) (Absent)
[2020-05-27 06:30] LABS: ABS Basophils 0.1 10^3/ul (0-0.2); ABS Lymphocytes 0.8 10^3/ul (1.0-4.8); ABS Monocytes 0.1 10^3/ul (0-0.8); ABS Neutrophils 7.2 10^3/ul (1.5-7.7); Eosinophil % 0.1 %; Hematocrit 30 % (35-47); Hemoglobin 9.7 g/dL (12.0-16.0); Lymphocyte % 9.7 %; Mean Corpuscular HGB Conc 33 g/dL (31-36); Mean Corpuscular Hemoglobin 27 pg (27-31); Mean Corpuscular Volume 83 fL (80-97); Mean Platelet Volume 8.2 fL (7.4-10.4); Platelet Count 201 10^3/uL (150-450); Red Blood Count 3.59 10^6 /uL (3.70-4.87); Red Cell Distribution Width 16 % (10-15); White Blood Count 8.2 10^3/uL (3.5-10.8)
[2020-05-27 06:50] LABS: Albumin 3.2 g/dL (3.2-5.2); Anion Gap 13 mmol/L (2-11); CO2 Carbon Dioxide 15 mmol/L (22-32); Calcium 6.9 mg/dL (8.6-10.3); Chloride 106 mmol/L (101-111); Potassium 3.9 mmol/L (3.5-5.0); Sodium 134 mmol/L (135-145)
[2020-05-27 06:56] LABS: ALT 11 U/L (7-52); AST 10 U/L (13-39); Alkaline Phosphatase 71 U/L (34-104); BUN/Creatinine Ratio 9.5 (8-20); Blood Urea Nitrogen 31 mg/dL (6-24); EGFR African American 17.6 (>60); EGFR Non-African American 14.5 (>60); Globulin 3.2 g/dL (2-4); Glucose 367 mg/dL (70-100); Total Protein 6.4 g/dL (6.4-8.9)
[2020-05-27 07:51] LABS: Troponin I 0.04 ng/mL (<0.03)
[2020-05-27] MEDS: methylPREDNISolone 125 mg 2 ML VIAL IV SCH (07:53)
[2020-05-27] MEDS ORDERED: Perflutren Lipid Microsphere 3 ML VIAL ONE (10:06)
[2020-05-27 10:55] LABS: CKMB ng/mL 1.3 ng/mL (0.6-6.3)
[2020-05-27] MEDS: Cefepime 2 GM in Dextrose 2 GM/50 ML BAG IV SCH (17:27)
[2020-05-28 06:47] LABS: Urine TP Concentration 426 mg/dL
[2020-05-28 08:17] LABS: ABS Lymphocytes 1.2 10^3/ul (1.0-4.8); ABS Monocytes 0.4 10^3/ul (0-0.8); ABS Neutrophils 12.7 10^3/ul (1.5-7.7); Hematocrit 29 % (35-47); Hemoglobin 9.2 g/dL (12.0-16.0); Lymphocyte % 8.3 %; Mean Corpuscular HGB Conc 32 g/dL (31-36); Mean Corpuscular Hemoglobin 27 pg (27-31); Mean Corpuscular Volume 83 fL (80-97); Mean Platelet Volume 8.6 fL (7.4-10.4); Platelet Count 243 10^3/uL (150-450); Red Blood Count 3.44 10^6 /uL (3.70-4.87); Red Cell Distribution Width 16 % (10-15); White Blood Count 14.3 10^3/uL (3.5-10.8)
[2020-05-28 08:33] LABS: Albumin 3.3 g/dL (3.2-5.2); BUN/Creatinine Ratio 13.6 (8-20); EGFR African American 19.3 (>60); Globulin 3.3 g/dL (2-4); Potassium 3.9 mmol/L (3.5-5.0); Total Bilirubin 0.2 mg/dL (0.2-1.0); Total Protein 6.6 g/dL (6.4-8.9)
[2020-05-28] MEDS: methylPREDNISolone 125 mg 2 ML VIAL IV SCH (08:46)
[2020-05-28 12:41] LABS: Glucose Confirmatory 404 mg/dL (70-100)
[2020-05-28 13:31] LABS: C Reactive Protein 138.89 mg/L (<8.01)
[2020-05-28 16:19] LABS: LDH 256 U/L (140-271)
[2020-05-28 17:08] LABS: Influenza A Molecular Negative (Negative); Influenza B Molecular Negative (Negative)
[2020-05-28 17:51] LABS: Glucose Confirmatory 495 mg/dL (70-100)
[2020-05-28] MEDS: AZITHROMYCIN 500 MG TAB PO SCH (18:03)
[2020-05-28] MEDS: Cefepime 2 GM in Dextrose 2 GM/50 ML BAG IV SCH (18:06)
[2020-05-28] MEDS ORDERED: NS 0.9% 1000 ml BAG 1,000 ML IV SCH (18:30)
[2020-05-29 00:59] LABS: Hematocrit 26 % (35-47); Hemoglobin 8.4 g/dL (12.0-16.0); Mean Corpuscular HGB Conc 32 g/dL (31-36); Mean Corpuscular Hemoglobin 27 pg (27-31); Mean Corpuscular Volume 83 fL (80-97); Mean Platelet Volume 8.8 fL (7.4-10.4); Platelet Count 224 10^3/uL (150-450); Red Blood Count 3.16 10^6 /uL (3.70-4.87); Red Cell Distribution Width 16 % (10-15); White Blood Count 12.1 10^3/uL (3.5-10.8)
[2020-05-29 01:04] LABS: Activated Partial Thrombo Time 26.5 seconds (26.0-38.0); INR 1.12 (0.82-1.09)
[2020-05-29 01:06] LABS: Calcium 6.6 mg/dL (8.6-10.3); EGFR African American 20.9 (>60); EGFR Non-African American 17.3 (>60); Potassium 4.1 mmol/L (3.5-5.0)
[2020-05-29] MEDS: methylPREDNISolone 125 mg 2 ML VIAL IV SCH (09:07)
[2020-05-29] MEDS: AZITHROMYCIN 500 MG TAB PO SCH (09:29)
[2020-05-29 13:03] LABS: Complement C3 161 mg/dL (75 - 175)
[2020-05-29 13:09] VITALS: BP 105/70
[2020-06-01 13:49] LABS: C-ANCA Negative (Negative); P-ANCA Negative (Negative)
== END 2020-05-29 15:00 | disposition home or self-care (01) | DRG 698 ==
LOC: ED 15:59 → MEDTELE 17:36
PROVIDERS: ADMIT Internal Medicine Hematology & Oncology; ATTEND Internal Medicine Hematology & Oncology

== ENCOUNTER 2021-11-02 13:57 | Inpatient (IN) ==
[2021-11-02] MEDS ORDERED: Lactated Ringers 1000 ml BAG 1,000 ML IV ONE ×2 (16:11→18:00)
[2021-11-02 16:46] LABS: ABS Lymphocytes 0.7 10^3/ul (1.0-4.8); ABS Monocytes 0.4 10^3/ul (0-0.8); ABS Neutrophils 9.9 10^3/ul (1.5-7.7); Eosinophil % 0.2 %; Hematocrit 34 % (35-47); Hemoglobin 11.2 g/dL (12.0-16.0); Lymphocyte % 6.2 %; Mean Corpuscular HGB Conc 33 g/dL (31-36); Mean Corpuscular Hemoglobin 27 pg (27-31); Mean Corpuscular Volume 83 fL (80-97); Mean Platelet Volume 8.6 fL (7.4-10.4); Nucleated Red Blood Cells % 0.3; Platelet Count 150 10^3/uL (150-450); Red Blood Count 4.13 10^6 /uL (3.70-4.87); Red Cell Distribution Width 21 % (10-15); White Blood Count 10.9 10^3/uL (3.5-10.8)
[2021-11-02] MEDS ORDERED: Morphine 4 MG/ML VIAL (1 ml) IV ONE (17:29)
[2021-11-02 17:45] LABS: Albumin 3.4 g/dL (3.2-5.2); Magnesium 1.3 mg/dL (1.9-2.7)
[2021-11-02 17:53] LABS: Albumin/Globulin Ratio 1.3 (1-3); C Reactive Protein 286.19 mg/L (<8.01); Calcium 7.8 mg/dL (8.6-10.3); Globulin 2.6 g/dL (2-4); Potassium 2.5 mmol/L (3.5-5.0); Total Bilirubin 1.6 mg/dL (0.2-1.0); eGFR CKD-EPI 11.8 (>60)
[2021-11-02] MEDS ORDERED: Ondansetron 4 mg VIAL 2 MG/ML 2 ml VIAL IV ONE (18:01)
[2021-11-02] MEDS ORDERED: Magnesium Sulf 4 GM/100 ML IV 4,000 MG/100 ML BAG IVPB ONE (19:25)
[2021-11-02] MEDS: Morphine 2 MG/ML SYRINGE IV PRN ×2 (19:40→21:23)
[2021-11-02] MEDS: KCL 20 MEQ/100 ML IVPREMIX 20 MEQ/100 ML BAG IV SCH ×3 (19:42→23:12)
[2021-11-02 19:44] LABS: Urine Appearance Cloudy; Urine Bilirubin 1+ (Small) (Negative); Urine Color Yellow; Urine Glucose Negative (Negative); Urine Ketones 1+ (15mg/dL) (Negative); Urine Specific Gravity 1.015 (1.005-1.030)
[2021-11-02 19:45] LABS: Urine Blood 3+ (Large) (Negative); Urine Nitrite Negative (Negative); Urine Protein 1+ (30 mg/dL) (Negative); Urine Urobilinogen 0.2 (Negative) (Negative); Urine pH 5.5 (5.0-9.0)
[2021-11-02] MEDS: Nystatin TOP POWDER 15 GM BTL TOPICAL SCH (20:05)
[2021-11-02 20:10] LABS: Urine Bacteria 2+ (Absent); Urine Red Blood Cell 3+(>10/hpf) (Absent); Urine White Blood Cell 3+(>20/hpf) (Absent)
[2021-11-02] MEDS ORDERED: NS 0.9% 1000 ml BAG 1,000 ML IV SCH (21:30)
[2021-11-02] MEDS ORDERED: cefTRIAXone 1 gm/50 mL D5W 1 GM/50 ML BAG IV ONE (21:45)
[2021-11-02] MEDS: oxyCODONE/Acetamin 5/325 mg TAB PO PRN (23:13)
[2021-11-03] MEDS ORDERED: Dextrose 50% Syringe 50 ml 25 GM/50 ML SYRINGE IV PUSH PRN (00:42)
[2021-11-03] MEDS ORDERED: Potassium Chloride LIQUID 20 MEQ/15 ML LIQUID PO ONE (02:32)
[2021-11-03] MEDS: Morphine 2 MG/ML SYRINGE IV PRN ×3 (05:18→18:30)
[2021-11-03 06:32] LABS: Hematocrit 32 % (35-47); Hemoglobin 10.3 g/dL (12.0-16.0); Mean Corpuscular HGB Conc 33 g/dL (31-36); Mean Corpuscular Hemoglobin 27 pg (27-31); Mean Corpuscular Volume 83 fL (80-97); Mean Platelet Volume 8.2 fL (7.4-10.4); Platelet Count 124 10^3/uL (150-450); Red Blood Count 3.79 10^6 /uL (3.70-4.87); Red Cell Distribution Width 21 % (10-15); White Blood Count 9.3 10^3/uL (3.5-10.8)
[2021-11-03 06:51] LABS: ABS Lymphocytes 0.8 10^3/ul (1.0-4.8); ABS Monocytes 0.3 10^3/ul (0-0.8); ABS Neutrophils 8.2 10^3/ul (1.5-7.7); Eosinophil % 0.5 %; Lymphocyte % 8.7 %; Nucleated Red Blood Cells % 0.2
[2021-11-03 07:16] LABS: Calcium 7.9 mg/dL (8.6-10.3); Magnesium 2.7 mg/dL (1.9-2.7); Potassium 3.1 mmol/L (3.5-5.0); TSH Ultra Thyroid Stim Horm 1.79 mcIU/mL (0.34-5.60)
[2021-11-03] MEDS ORDERED: KCL 20 MEQ/100 ML IVPREMIX 20 MEQ/100 ML BAG IV ONE (08:10)
[2021-11-03] MEDS: oxyCODONE/Acetamin 5/325 mg TAB PO PRN ×2 (09:01→20:30)
[2021-11-03] MEDS: Ondansetron 4 mg VIAL 2 MG/ML 2 ml VIAL IV PRN ×3 (09:27→18:30)
[2021-11-03] MEDS: Nystatin TOP POWDER 15 GM BTL TOPICAL SCH ×3 (09:27→20:32)
[2021-11-03] MEDS ORDERED: AXITINIB 1 MG PO SCH (12:00)
[2021-11-03 17:31] LABS: Calcium 7.6 mg/dL (8.6-10.3); Potassium 2.9 mmol/L (3.5-5.0); eGFR CKD-EPI 18.3 (>60)
[2021-11-03] MEDS ORDERED: Lactated Ringers 1000 ml BAG 1,000 ML IV SCH ×2 (18:00→18:52)
[2021-11-03] MEDS: KCL 10 MEQ/50 ML IVPREMIX 10 MEQ/50 ML BAG IV SCH ×3 (18:31→21:25)
[2021-11-03 18:38] LABS: Magnesium 2.4 mg/dL (1.9-2.7)
[2021-11-04] MEDS: Ondansetron 4 mg VIAL 2 MG/ML 2 ml VIAL IV PRN ×2 (03:30→12:55)
[2021-11-04] MEDS: oxyCODONE/Acetamin 5/325 mg TAB PO PRN ×3 (03:30→16:18)
[2021-11-04 05:48] LABS: ABS Eosinophils 0.1 10^3/ul (0-0.6); ABS Lymphocytes 0.9 10^3/ul (1.0-4.8); ABS Monocytes 0.3 10^3/ul (0-0.8); ABS Neutrophils 5.7 10^3/ul (1.5-7.7); Eosinophil % 1.4 %; Hematocrit 29 % (35-47); Lymphocyte % 12.2 %; Mean Corpuscular HGB Conc 32 g/dL (31-36); Mean Corpuscular Hemoglobin 26 pg (27-31); Mean Corpuscular Volume 84 fL (80-97); Mean Platelet Volume 8.4 fL (7.4-10.4); Nucleated Red Blood Cells % 0.1; Platelet Count 111 10^3/uL (150-450); Red Blood Count 3.42 10^6 /uL (3.70-4.87); Red Cell Distribution Width 22 % (10-15)
[2021-11-04 06:16] LABS: Calcium 7.6 mg/dL (8.6-10.3); Magnesium 2.3 mg/dL (1.9-2.7); Potassium 2.8 mmol/L (3.5-5.0)
[2021-11-04] MEDS: cefTRIAXone 1 gm/50 mL D5W 1 GM/50 ML BAG IV SCH (06:50)
[2021-11-04] MEDS ORDERED: Potassium EFFERVES 25 meq TAB PO ONE (08:09)
[2021-11-04] MEDS: KCL 20 MEQ/100 ML IVPREMIX 20 MEQ/100 ML BAG IV SCH ×2 (08:40→11:35)
[2021-11-04] MEDS: Nystatin TOP POWDER 15 GM BTL TOPICAL SCH ×3 (09:45→21:29)
[2021-11-04] MEDS: Lactated Ringers 1000 ml BAG 1,000 ML IV SCH (11:31)
[2021-11-04] MEDS: Morphine 2 MG/ML SYRINGE IV PRN ×2 (13:52→21:28)
[2021-11-04 17:00] LABS: Calcium 7.8 mg/dL (8.6-10.3); Potassium 3.8 mmol/L (3.5-5.0); eGFR CKD-EPI 24.9 (>60)
[2021-11-05] MEDS: Lactated Ringers 1000 ml BAG 1,000 ML IV SCH (02:58)
[2021-11-05 05:11] LABS: Hematocrit 29 % (35-47); Hemoglobin 9.4 g/dL (12.0-16.0); Mean Corpuscular HGB Conc 33 g/dL (31-36); Mean Corpuscular Hemoglobin 27 pg (27-31); Mean Corpuscular Volume 84 fL (80-97); Mean Platelet Volume 8.3 fL (7.4-10.4); Platelet Count 104 10^3/uL (150-450); Red Blood Count 3.44 10^6 /uL (3.70-4.87); Red Cell Distribution Width 23 % (10-15); White Blood Count 5.5 10^3/uL (3.5-10.8)
[2021-11-05 05:47] LABS: Calcium 7.7 mg/dL (8.6-10.3); Potassium 3.3 mmol/L (3.5-5.0); eGFR CKD-EPI 27.7 (>60)
[2021-11-05] MEDS: cefTRIAXone 1 gm/50 mL D5W 1 GM/50 ML BAG IV SCH (05:48)
[2021-11-05] MEDS: Morphine 2 MG/ML SYRINGE IV PRN ×2 (06:09→12:35)
[2021-11-05] MEDS: Nystatin TOP POWDER 15 GM BTL TOPICAL SCH ×3 (09:14→22:30)
[2021-11-05] MEDS: KCL 20 MEQ/100 ML IVPREMIX 20 MEQ/100 ML BAG IV SCH (12:10)
[2021-11-05] MEDS ORDERED: Gelfoam Sponge SIZE 100 SPONGE ONE (15:22)
[2021-11-05] MEDS ORDERED: Bupivacaine 0.25% EPI 200,000 30 ML SDV ONE (15:22)
[2021-11-05] MEDS ORDERED: Piperacillin/Tazobac 3.375 GM BAG ONE (15:30)
[2021-11-05] MEDS ORDERED: Bacitracin OINTMENT TUBE ONE (16:47)
[2021-11-05] MEDS ORDERED: HYDROmorphone 0.5 MG/0.5 ML SYRINGE IV SLOW PU PRN ×2 (17:36→17:37)
[2021-11-05] MEDS ORDERED: Ondansetron 4 mg VIAL 2 MG/ML 2 ml VIAL IV PRN (17:37)
[2021-11-05] MEDS ORDERED: Acetaminophen IV 1 GM/100ML 1,000 MG/100 ML BAG IV PRN (17:37)
[2021-11-05] MEDS ORDERED: fentaNYL 100 mcg/2 ml 50 MCG/ML VIAL IV PRN (17:37)
[2021-11-05] MEDS ORDERED: Naloxone 0.4 mg VIAL 0.4 mg/ml 1 ml VIAL IV PRN (17:37)
[2021-11-05] MEDS ORDERED: Polyethylene Glycol 3350 17 GM PACKET PO PRN (17:38)
[2021-11-05] MEDS ORDERED: Zosyn per Pharmacy NOTE FOLLOW UP SCH (18:00)
[2021-11-05] MEDS ORDERED: HYDROmorphone 1 MG/1 ML SYRINGE ONE (18:22)
[2021-11-05] MEDS: HYDROmorphone 1 MG/1 ML SYRINGE IV PRN ×5 (18:25→19:22)
[2021-11-05] MEDS: ZOSYN 3.375 GM Q8H per EXTENDED INFUSION IV SCH (20:46)
[2021-11-06] MEDS: oxyCODONE/Acetamin 5/325 mg TAB PO PRN ×6 (01:22→22:03)
[2021-11-06] MEDS: KCL 20 MEQ/100 ML IVPREMIX 20 MEQ/100 ML BAG IV SCH ×2 (01:49→03:50)
[2021-11-06] MEDS: ZOSYN 3.375 GM Q8H per EXTENDED INFUSION IV SCH ×3 (04:31→21:52)
[2021-11-06 05:59] LABS: Calcium 7.5 mg/dL (8.6-10.3); Magnesium 1.9 mg/dL (1.9-2.7); Phosphorus 3.1 mg/dL (2.5-5.0); Potassium 4.2 mmol/L (3.5-5.0)
[2021-11-06 06:43] LABS: ABS Lymphocytes 0.5 10^3/ul (1.0-4.8); ABS Monocytes 0.1 10^3/ul (0-0.8); ABS Neutrophils 3.9 10^3/ul (1.5-7.7); Hematocrit 29 % (35-47); Hemoglobin 9.3 g/dL (12.0-16.0); Lymphocyte % 11.1 %; Mean Corpuscular HGB Conc 32 g/dL (31-36); Mean Corpuscular Hemoglobin 27 pg (27-31); Mean Corpuscular Volume 85 fL (80-97); Mean Platelet Volume 8.2 fL (7.4-10.4); Nucleated Red Blood Cells % 0.1; Platelet Count 90 10^3/uL (150-450); Red Blood Count 3.45 10^6 /uL (3.70-4.87); Red Cell Distribution Width 22 % (10-15); White Blood Count 4.5 10^3/uL (3.5-10.8)
[2021-11-06] MEDS ORDERED: Enoxaparin 100 MG/ML SYR SUBCUT SCH (09:00)
[2021-11-06] MEDS: Bacitracin OINTMENT TUBE TOPICAL SCH (10:28)
[2021-11-06] MEDS: Nystatin TOP POWDER 15 GM BTL TOPICAL SCH ×3 (10:29→21:56)
[2021-11-06] MEDS: Ondansetron 4 mg VIAL 2 MG/ML 2 ml VIAL IV PRN ×2 (17:33→23:08)
[2021-11-06] MEDS ORDERED: Vancomycin 1,500 MG in NS 0.9% 250 ml 250 ML IVPB ONE (19:00)
[2021-11-07] MEDS: oxyCODONE/Acetamin 5/325 mg TAB PO PRN ×3 (03:47→20:24)
[2021-11-07] MEDS: ZOSYN 3.375 GM Q8H per EXTENDED INFUSION IV SCH ×3 (03:48→22:17)
[2021-11-07] MEDS ORDERED: Vancomycin per Pharmacy 1 EA NOTE FOLLOW UP PRN (05:12)
[2021-11-07 07:13] LABS: Hematocrit 30 % (35-47); Hemoglobin 9.8 g/dL (12.0-16.0); Mean Corpuscular HGB Conc 33 g/dL (31-36); Mean Corpuscular Hemoglobin 28 pg (27-31); Mean Corpuscular Volume 85 fL (80-97); Mean Platelet Volume 8.6 fL (7.4-10.4); Platelet Count 97 10^3/uL (150-450); Red Blood Count 3.56 10^6 /uL (3.70-4.87); Red Cell Distribution Width 23 % (10-15); White Blood Count 5.2 10^3/uL (3.5-10.8)
[2021-11-07 07:29] LABS: Calcium 7.4 mg/dL (8.6-10.3); Potassium 3.8 mmol/L (3.5-5.0); eGFR CKD-EPI 30.8 (>60)
[2021-11-07 07:59] LABS: ABS Lymphocytes 1.1 10^3/ul (1.0-4.8); ABS Monocytes 0.3 10^3/ul (0-0.8); ABS Neutrophils 3.8 10^3/ul (1.5-7.7); Eosinophil % 0.6 %; Lymphocyte % 21.5 %; Nucleated Red Blood Cells % 0.2
[2021-11-07] MEDS: Ondansetron 4 mg VIAL 2 MG/ML 2 ml VIAL IV PRN ×2 (09:17→18:23)
[2021-11-07] MEDS: Nystatin TOP POWDER 15 GM BTL TOPICAL SCH ×3 (09:57→20:25)
[2021-11-07] MEDS: Bacitracin OINTMENT TUBE TOPICAL SCH (09:58)
[2021-11-07] MEDS ORDERED: Vancomycin 1,250 MG in NS 0.9% 250 ml 250 ML IVPB SCH ×2 (20:00→20:15)
[2021-11-08] MEDS: ZOSYN 3.375 GM Q8H per EXTENDED INFUSION IV SCH ×3 (04:16→20:05)
[2021-11-08] MEDS: Ondansetron 4 mg VIAL 2 MG/ML 2 ml VIAL IV PRN (06:09)
[2021-11-08] MEDS: oxyCODONE/Acetamin 5/325 mg TAB PO PRN ×3 (06:09→20:12)
[2021-11-08 06:16] LABS: Hematocrit 30 % (35-47); Hemoglobin 9.4 g/dL (12.0-16.0); Mean Corpuscular HGB Conc 32 g/dL (31-36); Mean Corpuscular Hemoglobin 27 pg (27-31); Mean Corpuscular Volume 85 fL (80-97); Mean Platelet Volume 7.7 fL (7.4-10.4); Platelet Count 83 10^3/uL (150-450); Red Blood Count 3.49 10^6 /uL (3.70-4.87); Red Cell Distribution Width 23 % (10-15); White Blood Count 5.1 10^3/uL (3.5-10.8)
[2021-11-08 06:38] LABS: ABS Eosinophils 0.1 10^3/ul (0-0.6); ABS Lymphocytes 1.5 10^3/ul (1.0-4.8); ABS Monocytes 0.3 10^3/ul (0-0.8); ABS Neutrophils 3.2 10^3/ul (1.5-7.7); Eosinophil % 2.3 %; Lymphocyte % 29.1 %; Nucleated Red Blood Cells % 0.2
[2021-11-08 07:16] LABS: Calcium 7.3 mg/dL (8.6-10.3); Magnesium 1.5 mg/dL (1.9-2.7); Phosphorus 1.7 mg/dL (2.5-5.0); Potassium 3.8 mmol/L (3.5-5.0); eGFR CKD-EPI 28.1 (>60)
[2021-11-08] MEDS ORDERED: Magnesium Sulf 4 GM/100 ML IV 4,000 MG/100 ML BAG IVPB ONE (08:00)
[2021-11-08] MEDS ORDERED: Sodium Phosphate IV 15 MMOLE in NS 0.9% 250 ml 250 ML IV ONE (08:00)
[2021-11-08] MEDS: Bacitracin OINTMENT TUBE TOPICAL SCH (09:34)
[2021-11-08] MEDS: Nystatin TOP POWDER 15 GM BTL TOPICAL SCH ×3 (09:34→20:13)
[2021-11-08 16:07] LABS: C Reactive Protein 28.45 mg/L (<8.01)
[2021-11-09] MEDS: oxyCODONE/Acetamin 5/325 mg TAB PO PRN ×2 (03:09→08:47)
[2021-11-09] MEDS: ZOSYN 3.375 GM Q8H per EXTENDED INFUSION IV SCH (04:25)
[2021-11-09 06:21] LABS: Hematocrit 29 % (35-47); Hemoglobin 9.1 g/dL (12.0-16.0); Mean Corpuscular HGB Conc 32 g/dL (31-36); Mean Corpuscular Hemoglobin 27 pg (27-31); Mean Corpuscular Volume 86 fL (80-97); Mean Platelet Volume 8.2 fL (7.4-10.4); Platelet Count 67 10^3/uL (150-450); Red Blood Count 3.38 10^6 /uL (3.70-4.87); Red Cell Distribution Width 24 % (10-15); White Blood Count 5.3 10^3/uL (3.5-10.8)
[2021-11-09 06:37] LABS: Calcium 7.2 mg/dL (8.6-10.3); Magnesium 2.1 mg/dL (1.9-2.7); Phosphorus 2.4 mg/dL (2.5-5.0); Potassium 3.2 mmol/L (3.5-5.0); eGFR CKD-EPI 28.1 (>60)
[2021-11-09 06:56] LABS: ABS Eosinophils 0.1 10^3/ul (0-0.6); ABS Lymphocytes 1.8 10^3/ul (1.0-4.8); ABS Monocytes 0.5 10^3/ul (0-0.8); ABS Neutrophils 2.9 10^3/ul (1.5-7.7); Eosinophil % 2.4 %; Lymphocyte % 33.8 %; Nucleated Red Blood Cells % 0.1
[2021-11-09] MEDS ORDERED: Potassium Chlor 20 meq TAB.ER PO ONE (07:03)
[2021-11-09] MEDS: Bacitracin OINTMENT TUBE TOPICAL SCH (08:45)
[2021-11-09] MEDS: Nystatin TOP POWDER 15 GM BTL TOPICAL SCH ×2 (08:45→14:18)
[2021-11-09] MEDS ORDERED: Potassium Phosphate IV 10 MMOLE in NS 0.9% 250 ml 250 ML IVPB ONE (09:00)
[2021-11-09 11:45] VITALS: BP 109/75
[2021-11-09] MEDS ORDERED: Vancomycin Trough Check NOTE FOLLOW UP ONE (19:30)
[2021-11-09] MEDS ORDERED: Amoxicillin/Clavul 500/125 TAB (Augmentin 500 mg tab) PO SCH (21:00)
== END 2021-11-09 15:05 | disposition home or self-care (01) | DRG 982 ==
LOC: ED 13:57 → EDHOLD 21:28 → SUATTDRO 21:28 → SSU 22:45
PROVIDERS: ADMIT Student in an Organized Health Care Education/Training Program; ATTEND Hospitalist

== ENCOUNTER 2021-11-28 16:26 | Inpatient (IN) ==
[2021-11-28] MEDS ORDERED: Morphine 4 MG/ML VIAL (1 ml) IV ONE (17:04)
[2021-11-28 17:28] LABS: Hematocrit 25 % (35-47); Hemoglobin 7.7 g/dL (12.0-16.0); Mean Corpuscular HGB Conc 31 g/dL (31-36); Mean Corpuscular Hemoglobin 28 pg (27-31); Mean Corpuscular Volume 91 fL (80-97); Mean Platelet Volume 8.7 fL (7.4-10.4); Platelet Count 140 10^3/uL (150-450); Red Blood Count 2.71 10^6 /uL (3.70-4.87); Red Cell Distribution Width 24 % (10-15); White Blood Count 5.7 10^3/uL (3.5-10.8)
[2021-11-28 18:05] LABS: Urine Appearance Cloudy; Urine Bilirubin Negative (Negative); Urine Blood 1+ (Negative); Urine Color Yellow; Urine Glucose Negative (Negative); Urine Ketones Negative (Negative); Urine Nitrite Positive (Negative); Urine Protein Negative (Negative); Urine Specific Gravity 1.009 (1.002-1.030); Urine Urobilinogen Negative (Negative)
[2021-11-28 18:10] LABS: Albumin 3.1 g/dL (3.2-5.2); Albumin/Globulin Ratio 1.4 (1-3); Calcium 6.9 mg/dL (8.6-10.3); Globulin 2.2 g/dL (2-4); Potassium 4.1 mmol/L (3.5-5.0); Total Bilirubin 0.5 mg/dL (0.2-1.0); Total Protein 5.3 g/dL (6.4-8.9); eGFR CKD-EPI 25.6 (>60)
[2021-11-28 18:21] LABS: Urine Bacteria Absent (Absent); Urine Red Blood Cell 1+(3-5/hpf) (Absent); Urine Squamous Epithelial Cell Present (Absent); Urine White Blood Cell 3+(>20/hpf) (Absent)
[2021-11-28 18:41] LABS: Magnesium 0.9 mg/dL (1.9-2.7)
[2021-11-28] MEDS ORDERED: Magnesium Sulfate 2 gm BAG 2 GM/50 ML BAG IVPB ONE ×2 (19:12→23:55)
[2021-11-28 19:22] LABS: ABS Basophils 0.1 10^3/ul (0-0.2); ABS Eosinophils 0.1 10^3/ul (0-0.6); ABS Monocytes 0.4 10^3/ul (0-0.8); ABS Neutrophils 4.2 10^3/ul (1.5-7.7); Eosinophil % 1.6 %; Lymphocyte % 17.6 %; Nucleated Red Blood Cells % 0.1
[2021-11-28 19:29] LABS: High Sensitivity Troponin 1 Hr 10 pg/mL (<15)
[2021-11-28] MEDS ORDERED: HYDROmorphone 1 MG/1 ML SYRINGE IV SLOW PU ONE (19:40)
[2021-11-28] MEDS: cefTRIAXone 1 gm/50 mL D5W 1 GM/50 ML BAG IV SCH (22:14)
[2021-11-28] MEDS ORDERED: Morphine 4 MG/ML VIAL (1 ml) IV PRN (22:22)
[2021-11-28] MEDS ORDERED: Furosemide 40 mg/4 ml IV VIAL IV SLOW PU ONE (22:26)
[2021-11-28] MEDS ORDERED: Furosemide 20 mg/2 ml IV VIAL IV SLOW PU ONE (22:29)
[2021-11-28] MEDS ORDERED: Magnesium Sulfate 2 gm BAG 2 GM/50 ML BAG ONE (23:59)
[2021-11-29] MEDS ORDERED: Dextrose 50% Syringe 50 ml 25 GM/50 ML SYRINGE IV PUSH PRN (01:03)
[2021-11-29] MEDS ORDERED: Lactated Ringers 1000 ml BAG 1,000 ML IV SCH (03:00)
[2021-11-29 06:31] LABS: Hematocrit 24 % (35-47); Hemoglobin 7.5 g/dL (12.0-16.0); Mean Corpuscular HGB Conc 31 g/dL (31-36); Mean Corpuscular Hemoglobin 29 pg (27-31); Mean Corpuscular Volume 94 fL (80-97); Mean Platelet Volume 8.7 fL (7.4-10.4); Platelet Count 119 10^3/uL (150-450); Red Blood Count 2.57 10^6 /uL (3.70-4.87); Red Cell Distribution Width 24 % (10-15); White Blood Count 5.5 10^3/uL (3.5-10.8)
[2021-11-29 07:00] LABS: Calcium 6.7 mg/dL (8.6-10.3); Magnesium 1.7 mg/dL (1.9-2.7); Potassium 3.6 mmol/L (3.5-5.0); eGFR CKD-EPI 28.6 (>60)
[2021-11-29] MEDS ORDERED: Potassium Phosphate IV 10 MMOLE in NS 0.9% 250 ml 250 ML IVPB ONE (12:14)
[2021-11-29] MEDS ORDERED: Calcium Gluconate 2 GM in NS 0.9% 100 ml BAG 100 ML IV ONE (12:30)
[2021-11-29 12:39] LABS: Phosphorus 4.7 mg/dL (2.5-5.0)
[2021-11-29] MEDS: CALCIUM GLUCONATE 1GM/50ML NS BAG IV SCH ×2 (13:09→14:24)
[2021-11-29] MEDS: KCL 20 MEQ/100 ML IVPREMIX 20 MEQ/100 ML BAG IV SCH ×2 (17:53→21:25)
[2021-11-29 18:32] LABS: ABS Eosinophils 0.1 10^3/ul (0-0.6); ABS Lymphocytes 0.9 10^3/ul (1.0-4.8); ABS Monocytes 0.3 10^3/ul (0-0.8); ABS Neutrophils 4.2 10^3/ul (1.5-7.7); Eosinophil % 2.1 %; Hematocrit 25 % (35-47); Hemoglobin 7.9 g/dL (12.0-16.0); Lymphocyte % 16.7 %; Mean Corpuscular HGB Conc 31 g/dL (31-36); Mean Corpuscular Hemoglobin 29 pg (27-31); Mean Corpuscular Volume 94 fL (80-97); Mean Platelet Volume 8.9 fL (7.4-10.4); Nucleated Red Blood Cells % 0.1; Platelet Count 129 10^3/uL (150-450); Red Cell Distribution Width 23 % (10-15); White Blood Count 5.5 10^3/uL (3.5-10.8)
[2021-11-29 18:46] LABS: Calcium 7.6 mg/dL (8.6-10.3); Magnesium 1.7 mg/dL (1.9-2.7); Potassium 3.6 mmol/L (3.5-5.0); eGFR CKD-EPI 30.8 (>60)
[2021-11-29] MEDS ORDERED: Magnesium Sulfate 2 gm BAG 2 GM/50 ML BAG IVPB ONE (18:49)
[2021-11-29] MEDS ORDERED: CALCIUM GLUCONATE 1GM/50ML NS 1 GM/50 ML BAG IV ONE (18:50)
[2021-11-29] MEDS ORDERED: KCL 20 MEQ/100 ML IVPREMIX 20 MEQ/100 ML BAG IV SCH (19:00)
[2021-11-29] MEDS: Lactated Ringers 1000 ml BAG 1,000 ML IV SCH (21:23)
[2021-11-30] MEDS: cefTRIAXone 1 gm/50 mL D5W 1 GM/50 ML BAG IV SCH (00:14)
[2021-11-30 05:59] LABS: ABS Basophils 0.1 10^3/ul (0-0.2); ABS Eosinophils 0.3 10^3/ul (0-0.6); ABS Lymphocytes 1.2 10^3/ul (1.0-4.8); ABS Monocytes 0.3 10^3/ul (0-0.8); ABS Neutrophils 3.8 10^3/ul (1.5-7.7); Eosinophil % 5.1 %; Hematocrit 26 % (35-47); Hemoglobin 8.3 g/dL (12.0-16.0); Lymphocyte % 21.1 %; Mean Corpuscular HGB Conc 32 g/dL (31-36); Mean Corpuscular Hemoglobin 30 pg (27-31); Mean Corpuscular Volume 94 fL (80-97); Mean Platelet Volume 8.4 fL (7.4-10.4); Nucleated Red Blood Cells % 0.1; Platelet Count 133 10^3/uL (150-450); Red Blood Count 2.73 10^6 /uL (3.70-4.87); Red Cell Distribution Width 23 % (10-15); White Blood Count 5.7 10^3/uL (3.5-10.8)
[2021-11-30] MEDS: Lactated Ringers 1000 ml BAG 1,000 ML IV SCH (06:10)
[2021-11-30 06:29] LABS: Calcium 7.9 mg/dL (8.6-10.3); Magnesium 2.2 mg/dL (1.9-2.7); Potassium 3.8 mmol/L (3.5-5.0); eGFR CKD-EPI 33.4 (>60)
[2021-11-30] MEDS ORDERED: CALCIUM GLUCONATE 1GM/50ML NS 1 GM/50 ML BAG IV ONE (07:19)
[2021-11-30] MEDS ORDERED: Influenza vaccine *QUAD* *2022-23* 0.5 ML SYRINGE IM ONE (09:00)
[2021-11-30] MEDS ORDERED: Senna TAB 8.6 mg TAB PO PRN (11:45)
[2021-11-30] MEDS: Morphine ER 30 mg TAB ** extended release PO SCH ×2 (12:10→23:58)
[2021-11-30] MEDS: KCL 10 MEQ/50 ML IVPREMIX 10 MEQ/50 ML BAG IV SCH ×2 (12:11→13:13)
[2021-11-30] MEDS: Polyethylene Glycol 3350 17 GM PACKET PO SCH (20:33)
[2021-12-01 06:25] LABS: ABS Basophils 0.1 10^3/ul (0-0.2); ABS Eosinophils 0.4 10^3/ul (0-0.6); ABS Lymphocytes 1.3 10^3/ul (1.0-4.8); ABS Monocytes 0.4 10^3/ul (0-0.8); ABS Neutrophils 3.6 10^3/ul (1.5-7.7); Eosinophil % 7.1 %; Hematocrit 24 % (35-47); Hemoglobin 7.7 g/dL (12.0-16.0); Lymphocyte % 23.1 %; Mean Corpuscular HGB Conc 32 g/dL (31-36); Mean Corpuscular Hemoglobin 30 pg (27-31); Mean Corpuscular Volume 94 fL (80-97); Mean Platelet Volume 8.4 fL (7.4-10.4); Nucleated Red Blood Cells % 0.1; Platelet Count 129 10^3/uL (150-450); Red Blood Count 2.57 10^6 /uL (3.70-4.87); Red Cell Distribution Width 23 % (10-15); White Blood Count 5.8 10^3/uL (3.5-10.8)
[2021-12-01 06:51] LABS: Calcium 7.7 mg/dL (8.6-10.3); Potassium 3.9 mmol/L (3.5-5.0); eGFR CKD-EPI 30.6 (>60)
[2021-12-01] MEDS ORDERED: Calcium Gluconate 2 GM in NS 0.9% 100 ml BAG 100 ML IV ONE (08:00)
[2021-12-01] MEDS: Polyethylene Glycol 3350 17 GM PACKET PO SCH ×2 (08:17→21:19)
[2021-12-01] MEDS: Morphine ER 30 mg TAB ** extended release PO SCH ×2 (11:23→21:17)
[2021-12-01] MEDS ORDERED: Morphine 2 MG/ML SYRINGE IV ONE (15:59)
[2021-12-02 06:41] LABS: ABS Basophils 0.1 10^3/ul (0-0.2); ABS Eosinophils 0.4 10^3/ul (0-0.6); ABS Lymphocytes 1.3 10^3/ul (1.0-4.8); ABS Monocytes 0.4 10^3/ul (0-0.8); Eosinophil % 5.8 %; Hematocrit 24 % (35-47); Hemoglobin 7.5 g/dL (12.0-16.0); Lymphocyte % 21.7 %; Mean Corpuscular HGB Conc 31 g/dL (31-36); Mean Corpuscular Hemoglobin 29 pg (27-31); Mean Corpuscular Volume 95 fL (80-97); Mean Platelet Volume 8.4 fL (7.4-10.4); Nucleated Red Blood Cells % 0.1; Platelet Count 140 10^3/uL (150-450); Red Blood Count 2.56 10^6 /uL (3.70-4.87); Red Cell Distribution Width 23 % (10-15); White Blood Count 6.1 10^3/uL (3.5-10.8)
[2021-12-02 06:56] LABS: Calcium 7.7 mg/dL (8.6-10.3); Magnesium 1.8 mg/dL (1.9-2.7); Potassium 3.9 mmol/L (3.5-5.0); eGFR CKD-EPI 28.8 (>60)
[2021-12-02] MEDS ORDERED: CALCIUM GLUCONATE 1GM/50ML NS 1 GM/50 ML BAG IV ONE (07:33)
[2021-12-02] MEDS ORDERED: Magnesium Sulfate 2 gm BAG 2 GM/50 ML BAG IVPB ONE (07:34)
[2021-12-02] MEDS ORDERED: NON FORMULARY RESPIRATORY MED 1 DOSE MISC PO SCH (09:00)
[2021-12-02] MEDS: Morphine ER 15 mg TAB ** extended release PO SCH ×2 (09:56→14:09)
[2021-12-02] MEDS: Morphine ER 30 mg TAB ** extended release PO SCH ×2 (09:57→20:12)
[2021-12-02] MEDS: Polyethylene Glycol 3350 17 GM PACKET PO SCH ×3 (09:59→20:14)
[2021-12-02] MEDS: FOTIVDA PO SCH (10:09)
[2021-12-03 06:07] LABS: ABS Basophils 0.1 10^3/ul (0-0.2); ABS Eosinophils 0.4 10^3/ul (0-0.6); ABS Lymphocytes 1.1 10^3/ul (1.0-4.8); ABS Monocytes 0.4 10^3/ul (0-0.8); ABS Neutrophils 4.4 10^3/ul (1.5-7.7); Eosinophil % 6.6 %; Hematocrit 24 % (35-47); Hemoglobin 7.5 g/dL (12.0-16.0); Lymphocyte % 17.1 %; Mean Corpuscular HGB Conc 31 g/dL (31-36); Mean Corpuscular Hemoglobin 30 pg (27-31); Mean Corpuscular Volume 95 fL (80-97); Mean Platelet Volume 8.1 fL (7.4-10.4); Nucleated Red Blood Cells % 0.1; Platelet Count 142 10^3/uL (150-450); Red Blood Count 2.56 10^6 /uL (3.70-4.87); Red Cell Distribution Width 23 % (10-15); White Blood Count 6.4 10^3/uL (3.5-10.8)
[2021-12-03 06:42] LABS: Calcium 7.7 mg/dL (8.6-10.3); Magnesium 2.1 mg/dL (1.9-2.7); Potassium 3.8 mmol/L (3.5-5.0); eGFR CKD-EPI 24.4 (>60)
[2021-12-03 06:53] LABS: Ferritin 366.7 ng/mL (11-307)
[2021-12-03] MEDS ORDERED: Calcium Gluconate 2 GM in NS 0.9% 100 ml BAG 100 ML IV ONE (07:29)
[2021-12-03] MEDS: Morphine ER 30 mg TAB ** extended release PO SCH ×2 (10:18→20:45)
[2021-12-03] MEDS: CALCIUM GLUCONATE 1GM/50ML NS BAG IV SCH ×2 (10:19→11:44)
[2021-12-03] MEDS: FOTIVDA PO SCH (10:20)
[2021-12-03] MEDS: Polyethylene Glycol 3350 17 GM PACKET PO SCH ×2 (10:20→20:45)
[2021-12-03] MEDS: Morphine ER 15 mg TAB ** extended release PO SCH (13:26)
[2021-12-04 06:09] LABS: ABS Basophils 0.1 10^3/ul (0-0.2); ABS Eosinophils 0.5 10^3/ul (0-0.6); ABS Lymphocytes 1.1 10^3/ul (1.0-4.8); ABS Monocytes 0.4 10^3/ul (0-0.8); ABS Neutrophils 4.1 10^3/ul (1.5-7.7); Eosinophil % 7.4 %; Hematocrit 24 % (35-47); Hemoglobin 7.4 g/dL (12.0-16.0); Lymphocyte % 18.2 %; Mean Corpuscular HGB Conc 31 g/dL (31-36); Mean Corpuscular Hemoglobin 29 pg (27-31); Mean Corpuscular Volume 95 fL (80-97); Mean Platelet Volume 8.1 fL (7.4-10.4); Nucleated Red Blood Cells % 0.1; Platelet Count 162 10^3/uL (150-450); Red Blood Count 2.56 10^6 /uL (3.70-4.87); Red Cell Distribution Width 23 % (10-15); White Blood Count 6.1 10^3/uL (3.5-10.8)
[2021-12-04 06:21] LABS: Calcium 7.8 mg/dL (8.6-10.3); Potassium 3.7 mmol/L (3.5-5.0); eGFR CKD-EPI 23.6 (>60)
[2021-12-04] MEDS: Morphine ER 30 mg TAB ** extended release PO SCH ×2 (09:08→19:50)
[2021-12-04] MEDS: FOTIVDA PO SCH (09:09)
[2021-12-04] MEDS: Polyethylene Glycol 3350 17 GM PACKET PO SCH ×2 (09:09→20:46)
[2021-12-04] MEDS: KCL 10 MEQ/50 ML IVPREMIX 10 MEQ/50 ML BAG IV SCH ×3 (09:14→14:06)
[2021-12-04] MEDS: Morphine ER 15 mg TAB ** extended release PO SCH (14:05)
[2021-12-05 06:40] LABS: ABS Basophils 0.1 10^3/ul (0-0.2); ABS Eosinophils 0.8 10^3/ul (0-0.6); ABS Lymphocytes 1.3 10^3/ul (1.0-4.8); ABS Monocytes 0.5 10^3/ul (0-0.8); ABS Neutrophils 4.1 10^3/ul (1.5-7.7); Eosinophil % 11.2 %; Hematocrit 23 % (35-47); Hemoglobin 7.1 g/dL (12.0-16.0); Lymphocyte % 19.3 %; Mean Corpuscular HGB Conc 31 g/dL (31-36); Mean Corpuscular Hemoglobin 30 pg (27-31); Mean Corpuscular Volume 96 fL (80-97); Mean Platelet Volume 8.3 fL (7.4-10.4); Nucleated Red Blood Cells % 0.1; Platelet Count 178 10^3/uL (150-450); Red Cell Distribution Width 22 % (10-15); White Blood Count 6.8 10^3/uL (3.5-10.8)
[2021-12-05 06:55] LABS: Calcium 7.7 mg/dL (8.6-10.3); Potassium 4.2 mmol/L (3.5-5.0); eGFR CKD-EPI 24.5 (>60)
[2021-12-05] MEDS: Polyethylene Glycol 3350 17 GM PACKET PO SCH ×2 (08:07→20:58)
[2021-12-05] MEDS: Morphine ER 30 mg TAB ** extended release PO SCH ×2 (08:08→20:56)
[2021-12-05] MEDS: FOTIVDA PO SCH (08:09)
[2021-12-05] MEDS: Morphine ER 15 mg TAB ** extended release PO SCH (13:54)
[2021-12-06] MEDS: Morphine ER 30 mg TAB ** extended release PO SCH ×2 (08:31→20:02)
[2021-12-06] MEDS: Polyethylene Glycol 3350 17 GM PACKET PO SCH ×2 (08:32→20:05)
[2021-12-06 08:42] LABS: Calcium 7.7 mg/dL (8.6-10.3); Magnesium 1.8 mg/dL (1.9-2.7); Potassium 4.2 mmol/L (3.5-5.0); eGFR CKD-EPI 24.3 (>60)
[2021-12-06] MEDS ORDERED: Magnesium Sulfate 2 gm BAG 2 GM/50 ML BAG IVPB ONE (08:47)
[2021-12-06] MEDS ORDERED: Iron Sucrose 200 MG in NS 0.9% 100 ml BAG 100 ML IVPB ONE (08:59)
[2021-12-06] MEDS: FOTIVDA PO SCH (12:05)
[2021-12-06] MEDS: Morphine ER 15 mg TAB ** extended release PO SCH (13:48)
[2021-12-07 05:51] LABS: ABS Basophils 0.1 10^3/ul (0-0.2); ABS Eosinophils 0.5 10^3/ul (0-0.6); ABS Monocytes 0.4 10^3/ul (0-0.8); ABS Neutrophils 3.8 10^3/ul (1.5-7.7); Eosinophil % 8.4 %; Hematocrit 24 % (35-47); Hemoglobin 7.7 g/dL (12.0-16.0); Lymphocyte % 17.4 %; Mean Corpuscular HGB Conc 32 g/dL (31-36); Mean Corpuscular Hemoglobin 31 pg (27-31); Mean Corpuscular Volume 96 fL (80-97); Mean Platelet Volume 7.6 fL (7.4-10.4); Nucleated Red Blood Cells % 0.4; Platelet Count 205 10^3/uL (150-450); Red Blood Count 2.51 10^6 /uL (3.70-4.87); Red Cell Distribution Width 22 % (10-15); White Blood Count 5.8 10^3/uL (3.5-10.8)
[2021-12-07 06:12] LABS: Calcium 7.7 mg/dL (8.6-10.3); Magnesium 2.1 mg/dL (1.9-2.7); Phosphorus 4.8 mg/dL (2.5-5.0); Potassium 4.1 mmol/L (3.5-5.0); eGFR CKD-EPI 23.4 (>60)
[2021-12-07] MEDS: Morphine ER 30 mg TAB ** extended release PO SCH (08:42)
[2021-12-07] MEDS: FOTIVDA PO SCH (08:43)
[2021-12-07] MEDS: Polyethylene Glycol 3350 17 GM PACKET PO SCH (08:45)
[2021-12-07] MEDS ORDERED: Iron Sucrose 200 MG in NS 0.9% 100 ml BAG 100 ML IVPB ONE (10:10)
[2021-12-07 10:54] LABS: Corrected Retic Count 0.9 % (0.5-1.5); Hematocrit for Retic CNT 25 % (35-47); Immature Retic Fraction 0.66; RBC Retic Count 2.55 10^6/uL (3.70-4.87)
[2021-12-07 11:59] VITALS: BP 112/67
[2021-12-07] MEDS: Morphine ER 15 mg TAB ** extended release PO SCH (13:55)
== END 2021-12-07 15:30 | DRG 690 ==
LOC: ED 16:26 → EDHOLD 16:26 → SUATTDRO 20:34 → EDHOLD 11-29 16:52 → MED 11-29 17:13 → SSU 12-05 15:24
PROVIDERS: ADMIT Internal Medicine; ATTEND Internal Medicine

== ENCOUNTER 2021-12-07 13:22 | Inpatient (IN) ==
[2021-12-07] MEDS ORDERED: Senna TAB 8.6 mg TAB PO PRN (16:12)
[2021-12-07] MEDS ORDERED: Magnesium Hydroxide LIQ 30 ML UDC PO PRN (16:12)
[2021-12-07] MEDS ORDERED: Dextrose 50% Syringe 50 ml 25 GM/50 ML SYRINGE IV PUSH PRN (17:13)
[2021-12-07] MEDS: Polyethylene Glycol 3350 17 GM PACKET PO SCH (20:46)
[2021-12-07] MEDS: Morphine ER 15 mg TAB ** extended release PO SCH (20:46)
[2021-12-08 07:09] LABS: ABS Basophils 0.1 10^3/ul (0-0.2); ABS Eosinophils 0.4 10^3/ul (0-0.6); ABS Lymphocytes 1.2 10^3/ul (1.0-4.8); ABS Monocytes 0.4 10^3/ul (0-0.8); ABS Neutrophils 3.3 10^3/ul (1.5-7.7); Eosinophil % 8.2 %; Hematocrit 24 % (35-47); Hemoglobin 7.6 g/dL (12.0-16.0); Lymphocyte % 21.9 %; Mean Corpuscular HGB Conc 31 g/dL (31-36); Mean Corpuscular Hemoglobin 30 pg (27-31); Mean Corpuscular Volume 96 fL (80-97); Mean Platelet Volume 8.3 fL (7.4-10.4); Nucleated Red Blood Cells % 0.2; Platelet Count 241 10^3/uL (150-450); Red Blood Count 2.53 10^6 /uL (3.70-4.87); Red Cell Distribution Width 21 % (10-15); White Blood Count 5.3 10^3/uL (3.5-10.8)
[2021-12-08 07:30] LABS: Albumin 2.5 g/dL (3.2-5.2); Calcium 7.7 mg/dL (8.6-10.3); Potassium 4.3 mmol/L (3.5-5.0); Total Protein 4.5 g/dL (6.4-8.9); eGFR CKD-EPI 23.3 (>60)
[2021-12-08 07:31] LABS: Albumin/Globulin Ratio 1.3 (1-3); Total Bilirubin 0.3 mg/dL (0.2-1.0)
[2021-12-08] MEDS: Morphine ER 15 mg TAB ** extended release PO SCH ×3 (09:08→21:07)
[2021-12-08] MEDS: Polyethylene Glycol 3350 17 GM PACKET PO SCH ×2 (09:10→21:57)
[2021-12-08] MEDS: [UNRECOGNIZED DRUG - OTHER] PO SCH (11:59)
[2021-12-09] MEDS: Morphine ER 15 mg TAB ** extended release PO SCH ×3 (07:40→20:24)
[2021-12-09] MEDS: Polyethylene Glycol 3350 17 GM PACKET PO SCH ×2 (07:43→20:15)
[2021-12-09] MEDS: [UNRECOGNIZED DRUG - OTHER] PO SCH (07:49)
[2021-12-10] MEDS: Morphine ER 15 mg TAB ** extended release PO SCH ×3 (08:50→21:15)
[2021-12-10] MEDS: [UNRECOGNIZED DRUG - OTHER] PO SCH (08:53)
[2021-12-10] MEDS: Polyethylene Glycol 3350 17 GM PACKET PO SCH ×2 (08:54→21:16)
[2021-12-10] MEDS ORDERED: Morphine ER 30 mg TAB ** extended release PO SCH (21:00)
[2021-12-10] MEDS: Nystatin TOP POWDER 15 GM BTL TOPICAL SCH (21:16)
[2021-12-11] MEDS: Morphine ER 15 mg TAB ** extended release PO SCH ×3 (05:17→21:24)
[2021-12-11] MEDS: Polyethylene Glycol 3350 17 GM PACKET PO SCH ×2 (08:24→21:24)
[2021-12-11] MEDS: [UNRECOGNIZED DRUG - OTHER] PO SCH (08:26)
[2021-12-11] MEDS: Nystatin TOP POWDER 15 GM BTL TOPICAL SCH ×2 (12:21→21:24)
[2021-12-11] MEDS: Calcium Carb (TUMS) 500 mg CHEW TAB PO PRN ×2 (16:30→22:12)
[2021-12-12] MEDS: Morphine ER 15 mg TAB ** extended release PO SCH ×3 (05:46→20:54)
[2021-12-12] MEDS: Polyethylene Glycol 3350 17 GM PACKET PO SCH ×2 (07:56→20:55)
[2021-12-12] MEDS: [UNRECOGNIZED DRUG - OTHER] PO SCH (07:56)
[2021-12-12] MEDS: Nystatin TOP POWDER 15 GM BTL TOPICAL SCH ×2 (11:24→20:52)
[2021-12-12] MEDS: Calcium Carb (TUMS) 500 mg CHEW TAB PO PRN ×2 (13:04→17:21)
[2021-12-13 06:26] LABS: ABS Basophils 0.1 10^3/ul (0-0.2); ABS Eosinophils 0.7 10^3/ul (0-0.6); ABS Lymphocytes 1.4 10^3/ul (1.0-4.8); ABS Monocytes 0.6 10^3/ul (0-0.8); ABS Neutrophils 5.6 10^3/ul (1.5-7.7); ABS Nucleated RBC 0.1 10^3/ul; Eosinophil % 8.3 %; Hematocrit 29 % (35-47); Hemoglobin 8.6 g/dL (12.0-16.0); Lymphocyte % 16.1 %; Mean Corpuscular HGB Conc 30 g/dL (31-36); Mean Corpuscular Hemoglobin 29 pg (27-31); Mean Corpuscular Volume 97 fL (80-97); Mean Platelet Volume 8.1 fL (7.4-10.4); Nucleated Red Blood Cells % 0.8; Platelet Count 362 10^3/uL (150-450); Red Blood Count 2.96 10^6 /uL (3.70-4.87); Red Cell Distribution Width 21 % (10-15); White Blood Count 8.4 10^3/uL (3.5-10.8)
[2021-12-13] MEDS ORDERED: Morphine ER 15 mg TAB ** extended release PO SCH (09:00)
[2021-12-13] MEDS ORDERED: D5NS 0.9% 1000 ml BAG 1,000 ML IV SCH ×5 (12:00→21:00)
[2021-12-13 13:37] LABS: Albumin 2.3 g/dL (3.2-5.2); Calcium 7.3 mg/dL (8.6-10.3); Globulin 2.2 g/dL (2-4); Total Bilirubin 0.3 mg/dL (0.2-1.0); Total Protein 4.5 g/dL (6.4-8.9); eGFR CKD-EPI 8.9 (>60)
[2021-12-13] MEDS: Polyethylene Glycol 3350 17 GM PACKET PO SCH ×2 (15:09→20:37)
[2021-12-13] MEDS: Nystatin TOP POWDER 15 GM BTL TOPICAL SCH ×2 (15:12→20:26)
[2021-12-13] MEDS: [UNRECOGNIZED DRUG - OTHER] PO SCH (15:13)
[2021-12-13] MEDS ORDERED: Morphine ER 30 mg TAB ** extended release PO SCH (16:44)
[2021-12-13 17:02] LABS: C Reactive Protein 117.52 mg/L (<8.01); Calcium 7.1 mg/dL (8.6-10.3); Potassium 4.8 mmol/L (3.5-5.0); eGFR CKD-EPI 8.6 (>60)
[2021-12-13 18:05] LABS: TSH Ultra Thyroid Stim Horm 45.61 mcIU/mL (0.34-5.60)
[2021-12-13 19:30] LABS: Urine Appearance Cloudy; Urine Bilirubin Negative (Negative); Urine Blood 2+ (Negative); Urine Color Amber; Urine Glucose Negative (Negative); Urine Ketones Negative (Negative); Urine Nitrite Negative (Negative); Urine Protein 1+(30 mg/dL) (Negative); Urine Specific Gravity 1.023 (1.002-1.030); Urine Urobilinogen Negative (Negative)
[2021-12-13 19:41] LABS: Urine Creatinine Concentration 214.71 mg/dL; Urine Sodium Concentration < 18 mmol/L
[2021-12-13 19:42] LABS: Urine TP Concentration 103 mg/dL
[2021-12-13 19:46] LABS: Urine Bacteria 1+ (Absent); Urine Red Blood Cell 2+(6-10/hpf) (Absent); Urine Squamous Epithelial Cell Present (Absent); Urine White Blood Cell Trace(0-5/hpf) (Absent)
[2021-12-13] MEDS: Morphine ER 15 mg TAB ** extended release PO SCH (20:23)
[2021-12-14] MEDS ORDERED: Acetaminophen IV 1 GM/100ML 1,000 MG/100 ML BAG IV PRN (02:29)
[2021-12-14] MEDS ORDERED: NS 0.9% 250 ml 250 ML IV ONE (05:43)
[2021-12-14] MEDS ORDERED: Albumin Human 25% 12.5 GM/50 ML BTL IV ONE (05:52)
[2021-12-14] MEDS ORDERED: [UNRECOGNIZED DRUG - OTHER] IV ONE (06:08)
[2021-12-14 06:12] LABS: Hematocrit 31 % (35-47); Hemoglobin 9.4 g/dL (12.0-16.0); Mean Corpuscular HGB Conc 31 g/dL (31-36); Mean Corpuscular Hemoglobin 30 pg (27-31); Mean Corpuscular Volume 97 fL (80-97); Mean Platelet Volume 8.2 fL (7.4-10.4); Platelet Count 439 10^3/uL (150-450); Red Blood Count 3.16 10^6 /uL (3.70-4.87); Red Cell Distribution Width 21 % (10-15); White Blood Count 9.2 10^3/uL (3.5-10.8)
[2021-12-14 06:51] LABS: ABS Basophils 0.1 10^3/ul (0-0.2); ABS Eosinophils 0.4 10^3/ul (0-0.6); ABS Lymphocytes 1.2 10^3/ul (1.0-4.8); ABS Monocytes 0.7 10^3/ul (0-0.8); ABS Neutrophils 6.9 10^3/ul (1.5-7.7); ABS Nucleated RBC 0.1 10^3/ul; Eosinophil % 4.8 %; Lymphocyte % 12.8 %; Nucleated Red Blood Cells % 1.1
[2021-12-14 07:29] LABS: Calcium 7.2 mg/dL (8.6-10.3); Potassium 4.9 mmol/L (3.5-5.0)
[2021-12-14] MEDS ORDERED: NS 0.9% 1000 ml BAG 1,000 ML IV ONE (08:07)
[2021-12-14 08:09] VITALS: BP 96/66
[2021-12-14] MEDS: Polyethylene Glycol 3350 17 GM PACKET PO SCH (08:22)
[2021-12-14] MEDS: Morphine ER 15 mg TAB ** extended release PO SCH (08:24)
[2021-12-14 08:35] LABS: PCO2 Arterial 41 mmHg (35-45); PO2 Arterial 78 mmHg (80-100)
[2021-12-14] MEDS: Nystatin TOP POWDER 15 GM BTL TOPICAL SCH (08:48)
[2021-12-14] MEDS ORDERED: Sodium Bicarb 8.4% Vial 50 ML 75 MEQ in NS 0.45% 1000 ml BAG 925 ML IVPB SCH (09:00)
[2021-12-14] MEDS ORDERED: cefTRIAXone 1 gm/50 mL D5W 1 GM/50 ML BAG IV SCH (12:00)
== END 2021-12-14 09:49 | disposition short-term general hospital (02) | DRG 945 ==
LOC: PMRU 15:56
PROVIDERS: ADMIT Physical Medicine & Rehabilitation; ATTEND Physical Medicine & Rehabilitation

== ENCOUNTER 2021-12-14 08:14 | Inpatient (IN) ==
[2021-12-14] MEDS ORDERED: Morphine ORAL CONCENTRATE 5 MG/0.25 ML ORAL.SYRIN PO PRN (13:10)
[2021-12-14] MEDS ORDERED: Ondansetron 4 mg VIAL 2 MG/ML 2 ml VIAL IV PRN (13:10)
[2021-12-14] MEDS ORDERED: Sodium Bicarb 8.4% Vial 50 ML 75 MEQ in NS 0.45% 1000 ml BAG 925 ML IV SCH (17:00)
[2021-12-15] MEDS: Haloperidol 5 mg/ml SDV IV/IM 5 MG/ML AMP IV SLOW PU PRN ×3 (09:06→21:33)
[2021-12-15] MEDS: Morphine ORAL CONCENTRATE 5 MG/0.25 ML ORAL.SYRIN SL PRN ×5 (11:05→22:55)
[2021-12-16] MEDS: Morphine ORAL CONCENTRATE 5 MG/0.25 ML ORAL.SYRIN SL PRN ×5 (07:35→21:05)
[2021-12-17] MEDS: Morphine ORAL CONCENTRATE 5 MG/0.25 ML ORAL.SYRIN SL PRN ×3 (01:32→13:14)
[2021-12-17 07:29] VITALS: BP 104/71
[2021-12-18] MEDS: Morphine ORAL CONCENTRATE 5 MG/0.25 ML ORAL.SYRIN SL PRN ×4 (02:07→15:51)
[2021-12-19] MEDS: Morphine ORAL CONCENTRATE 5 MG/0.25 ML ORAL.SYRIN SL PRN ×5 (04:05→21:43)
[2021-12-19] MEDS: Haloperidol 5 mg/ml SDV IV/IM 5 MG/ML AMP IV SLOW PU PRN (12:18)
[2021-12-20] MEDS: Morphine ORAL CONCENTRATE 5 MG/0.25 ML ORAL.SYRIN SL PRN ×8 (00:48→22:19)
[2021-12-20] MEDS: Haloperidol 5 mg/ml SDV IV/IM 5 MG/ML AMP IV SLOW PU PRN (10:26)
[2021-12-21] MEDS: Morphine ORAL CONCENTRATE 5 MG/0.25 ML ORAL.SYRIN SL PRN ×7 (01:21→22:00)
[2021-12-21] MEDS: Atropine 1% (ORAL/SL) 15 ML BTL SL PRN ×2 (19:37→22:00)
[2021-12-22] MEDS: Atropine 1% (ORAL/SL) 15 ML BTL SL PRN ×2 (00:09→02:19)
[2021-12-22] MEDS: Morphine ORAL CONCENTRATE 5 MG/0.25 ML ORAL.SYRIN SL PRN ×2 (00:11→02:19)
== END 2021-12-22 05:20 | disposition expired | DRG 683 ==
LOC: MEDTELE 12:08 → SUATTDRO 12:08 → MED 12-15 17:09
PROVIDERS: ADMIT Hospitalist; ATTEND Internal Medicine